=== PATIENT | male | born 1950 | race Caucasian/White ===

== ENCOUNTER → 2017-08-29 08:35 | Outpatient (CLI) | payer MEDICARE, OTHER, SELFPAY ==
[2017-08-29 13:16] LABS: Anion Gap 6 (5-15); BUN 20 mg/dL (7-18); BUN/Creat Ratio 19.6 RATIO (10-20); Calcium,Total 8.7 mg/dL (8.5-10.1); Chloride 103 mmol/L (98-107); Cholesterol 115 mg/dL (200); Creatinine, Serum 1.02 mg/dL (0.70-1.30); EST Glomerular Filtration Rate 77 mL/min (>60); Est Glom Filt Rate - Afr Amer 94 mL/min (>60); Glucose 140 mg/dL (74-106); High Density Lipoprotein 40 mg/dL; Potassium 4.2 mmol/L (3.5-5.1); Sodium Level 139 mmol/L (136-145); Triglycerides 126 mg/dL; Very Low Density Lipoprotein 25 mg/dL (5-40)
== END ==
PROVIDERS: Family Provider Family Medicine; PCP Family Medicine; Visit Provider Family Medicine
DX: E11.65 Type 2 diabetes mellitus with hyperglycemia (principal); E78.00 Pure hypercholesterolemia, unspecified
CPT/HCPCS: 36415; 80048; 80061

== ENCOUNTER → 2018-06-03 09:42 | Outpatient (CLI) | payer MEDICARE, OTHER, SELFPAY ==
[2018-06-03 12:12] LABS: Absolute Lymphocyte Count 2.24 X10^3/ul (0.83-4.51); Absolute Neutrophil Count 4.4 X10^3/uL (2.0-7.7); Basophil# 0.04 X10^3/uL; Basophil% 0.5 % (0-1); Eosinophil# 0.13 X10^3/uL; Eosinophils% 1.8 % (0-5); Hematocrit 42.4 % (40-54); Hemoglobin 13.7 g/dl (13.0-16.5); Lymphocyte # 2.24 X10^3/ul (4.0); Lymphocyte % 30.5 % (19-41); Mean Corp Hgb Conc 32.3 g/gl (32-36); Mean Corpuscular Hgb 29.3 pg (27.0-32.0); Mean Corpuscular Volume 90.8 fL (80-94); Mean Platelet Vol. 12.1 fl (6.2-12.0); Monocyte# 0.58 X10^3/uL; Monocyte% 7.9 % (0-10); Neutrophil # 4.35 X10^3/uL (2.7-7.7); Neutrophil % 59.2 % (47-70); Platelet Count 231 K/mm3 (150-450); RBC Distribution Width CV 13.1 % (11.6-14.6); Red Blood Count 4.67 M/mm3 (4.6-6.2); White Blood Count 7.4 K/mm3 (4.4-11.0)
[2018-06-03 12:23] LABS: POSITIVE COUNT NO; POSITIVE DIFFERENTIAL NO; POSITIVE MORPHOLOGY NO
[2018-06-03 12:50] LABS: Anion Gap 10 (5-15); BUN 25 mg/dL (7-18); BUN/Creat Ratio 19.4 RATIO (10-20); Calcium,Total 8.6 mg/dL (8.5-10.1); Chloride 102 mmol/L (98-107); Creatinine, Serum 1.29 mg/dL (0.70-1.30); EST Glomerular Filtration Rate 59 mL/min (>60); Est Glom Filt Rate - Afr Amer 71 mL/min (>60); Glucose 303 mg/dL (74-106); Potassium 5.1 mmol/L (3.5-5.1); Sodium Level 136 mmol/L (136-145); Thyroid Stim Hormone (TSH) 3.61 uIU/mL (0.358-3.74)
== END ==
PROVIDERS: Family Provider Family Medicine; PCP Family Medicine; Visit Provider Family Medicine
DX: I10 Essential (primary) hypertension (principal); E78.00 Pure hypercholesterolemia, unspecified; R80.9 Proteinuria, unspecified
CPT/HCPCS: 36415; 80048; 84443; 85025

== ENCOUNTER → 2019-03-15 09:14 | Outpatient (CLI) | payer MEDICARE, OTHER, SELFPAY ==
[2019-03-15 12:47] LABS: Absolute Lymphocyte Count 1.87 X10^3/uL (0.83-4.51); Absolute Neutrophil Count 4.3 X10^3/uL (2.0-7.7); Basophil# 0.04 X10^3/uL; Basophil% 0.6 % (0-1); Eosinophil# 0.06 X10^3/uL; Eosinophils% 0.9 % (0-5); Hematocrit 42.4 % (40-54); Hemoglobin 13.7 g/dL (13.0-16.5); Lymphocyte # 1.87 X10^3/ul (4.0); Lymphocyte % 27.7 % (19-41); Mean Corp Hgb Conc 32.3 g/dL (32-36); Mean Corpuscular Hgb 29.4 pg (27.0-32.0); Mean Platelet Vol. 11.7 fl (6.2-12.0); Monocyte# 0.48 X10^3/uL; Monocyte% 7.1 % (0-10); NRBC Flagged by Analyzer 0 % (0-5); Neutrophil # 4.29 X10^3/uL (2.7-7.7); Neutrophil % 63.4 % (47-70); Platelet Count 230 K/mm3 (150-450); RBC Distribution Width CV 13.2 % (11.6-14.6); RBC Distribution Width SD 43.6 fl (35.1-43.9); Red Blood Count 4.66 M/mm3 (4.6-6.2); White Blood Count 6.8 K/mm3 (4.4-11.0)
[2019-03-15 13:06] LABS: ALB/GLOB Ratio 1.1 RATIO (0.9-2.4); AST(SGOT) 15 U/L (15-37); Alanine Aminotransfer ALT/SGPT 24 U/L (16-61); Alkaline Phosphatase 74 U/L (45-117); Anion Gap 7 (5-15); BUN 25 mg/dL (7-18); BUN/Creat Ratio 22.3 RATIO (10-20); Calcium,Total 9.3 mg/dL (8.5-10.1); Chloride 108 mmol/L (98-107); Creatinine, Serum 1.12 mg/dL (0.70-1.30); EST Glomerular Filtration Rate 69 mL/min (>60); Est Glom Filt Rate - Afr Amer 84 mL/min (>60); Globulin 3.6 g/dL (2.2-4.2); Glucose 126 mg/dL (74-106); Potassium 4.3 mmol/L (3.5-5.1); Protein, Total 7.6 g/dL (6.4-8.2); Sodium Level 141 mmol/L (136-145); Thyroid Stim Hormone (TSH) 2.12 uIU/mL (0.358-3.74)
== END ==
PROVIDERS: Family Provider Family Medicine; PCP Family Medicine; Visit Provider Family Medicine
DX: E11.65 Type 2 diabetes mellitus with hyperglycemia (principal); I10 Essential (primary) hypertension; E78.00 Pure hypercholesterolemia, unspecified
CPT/HCPCS: 36415; 80053; 84443; 85025

== ENCOUNTER → 2019-10-01 07:33 | Outpatient (CLI) | payer MEDICARE, OTHER, SELFPAY ==
--- NOTE | 2019-10-01 07:37 | US_ITS ---
PROCEDURES: ULTRASOUND AORTA REASON FOR EXAM: Male, 69 years old. AAA SCREEN -H/O SMOKING TECHNIQUE: Ultrasound evaluation of the aorta was performed with real-time and static abreu-scale imaging. COMPARISON: None. FINDINGS: There is no elongation or tortuosity of the abdominal aorta. Aorta measures: Proximal 1.7 cm. Middle 1.5 cm. Distal 1.3 cm. Aorta measure transversely: Proximal 1.8 cm. Middle 1.8 cm. Distal 1.6 cm. Right iliac artery measures: 0.9 cm. Right iliac artery measure transversely: 0.9 cm. Left iliac artery measures: 1.1 cm. Left iliac artery measure transversely: 0.9 cm. There is no demonstrated aneurysm.. US/Aorta IMPRESSION: Normal abdominal aorta. Electronically Signed: Gabriel Chaney DO at 23:20 EDT Tel [phone], Service support ,
== END ==
PROVIDERS: PCP Family Medicine; Referring Provider Family Medicine; Visit Provider Family Medicine
DX: I10 Essential (primary) hypertension (principal); Z87.891 Personal history of nicotine dependence
CPT/HCPCS: 76775

== ENCOUNTER → 2020-04-26 | Outpatient (CLI) | payer MEDICARE, OTHER, SELFPAY ==
[2020-04-26 15:14] LABS: Absolute Lymphocyte Count 2.01 X10^3/uL (0.83-4.51); Absolute Neutrophil Count 4.4 X10^3/uL (2.0-7.7); Basophil# 0.05 X10^3/uL; Basophil% 0.7 % (0-1); Eosinophil# 0.12 X10^3/uL; Eosinophils% 1.7 % (0-5); Hematocrit 42.6 % (40-54); Hemoglobin 13.7 g/dL (13.0-16.5); Lymphocyte # 2.01 X10^3/ul (4.0); Mean Corp Hgb Conc 32.2 g/dL (32-36); Mean Corpuscular Volume 90.3 fL (80-94); Mean Platelet Vol. 11.8 fl (6.2-12.0); Monocyte# 0.57 X10^3/uL; Monocyte% 7.9 % (0-10); NRBC Flagged by Analyzer 0 % (0-5); Neutrophil # 4.41 X10^3/uL (2.7-7.7); Neutrophil % 61.6 % (47-70); Platelet Count 252 K/mm3 (150-450); RBC Distribution Width CV 12.7 % (11.6-14.6); RBC Distribution Width SD 41.7 fl (35.1-43.9); Red Blood Count 4.72 M/mm3 (4.6-6.2); White Blood Count 7.2 K/mm3 (4.4-11.0)
[2020-04-26 15:37] LABS: ALB/GLOB Ratio 1.2 RATIO (0.9-2.4); AST(SGOT) 23 U/L (15-37); Alanine Aminotransfer ALT/SGPT 23 U/L (16-61); Alkaline Phosphatase 72 U/L (45-117); Anion Gap 7 (5-15); BUN 28 mg/dL (7-18); BUN/Creat Ratio 28.1 RATIO (10-20); Calcium,Total 8.6 mg/dL (8.5-10.1); Chloride 106 mmol/L (98-107); EST Glomerular Filtration Rate 79 mL/min (>60); Est Glom Filt Rate - Afr Amer 96 mL/min (>60); Globulin 3.2 g/dL (2.2-4.2); Glucose 128 mg/dL (74-106); Potassium 4.6 mmol/L (3.5-5.1); Protein, Total 7.2 g/dL (6.4-8.2); Sodium Level 138 mmol/L (136-145); Thyroid Stim Hormone (TSH) 2.47 uIU/mL (0.358-3.74)
== END | disposition home or self-care (01) ==
LOC: BFHLAB 11:10
PROVIDERS: PCP Family Medicine; Visit Provider Family Medicine
DX: E11.65 Type 2 diabetes mellitus with hyperglycemia (principal); I10 Essential (primary) hypertension; E78.00 Pure hypercholesterolemia, unspecified
CPT/HCPCS: 36415; 80053; 84443; 85025

== ENCOUNTER 2020-09-13 14:55 | Outpatient (RCR) | payer MEDICARE, OTHER, SELFPAY | END 2020-09-13 23:59 | LOC: IMMUN 14:55 | PROVIDERS: PCP Family Medicine; Visit Provider Family Medicine | DX: Z23 Encounter for immunization (principal) | CPT/HCPCS: 0011A; 0012A; 91301 ==

== ENCOUNTER → 2020-10-25 10:35 | Outpatient (CLI) | payer MEDICARE, OTHER, SELFPAY ==
[2020-10-25 12:58] LABS: Anion Gap 5 (5-15); BUN 28 mg/dL (7-18); BUN/Creat Ratio 28.2 RATIO (10-20); Calcium,Total 8.9 mg/dL (8.5-10.1); Chloride 105 mmol/L (98-107); Creatinine, Serum 0.99 mg/dL (0.70-1.30); EST Glomerular Filtration Rate 79 mL/min (>60); Est Glom Filt Rate - Afr Amer 96 mL/min (>60); Glucose 128 mg/dL (74-106); Potassium 4.7 mmol/L (3.5-5.1); Sodium Level 135 mmol/L (136-145)
== END ==
PROVIDERS: PCP Family Medicine; Referring Provider Family Medicine; Visit Provider Family Medicine
DX: I10 Essential (primary) hypertension (principal)
CPT/HCPCS: 36415; 80048

== ENCOUNTER 2021-08-08 09:35 | Emergency (ER) | payer MEDICARE, OTHER, SELFPAY ==
[2021-08-08 09:35] VITALS: BP 154/66; PULSE 79; RESP 15; TEMP 35.8; O2SAT 98; BMI 26.2
--- NOTE | 2021-08-08 10:08 | EKG12_ITS ---
Test Reason : CP Blood Pressure : / mmHG Vent. Rate : 076 BPM Atrial Rate : 076 BPM P-R Int : 152 ms QRS Dur : 080 ms QT Int : 386 ms P-R-T Axes : 035 043 032 degrees QTc Int : 434 ms Normal sinus rhythm Normal ECG Confirmed by PORSCHE MATA, JOHN ([id number]), web editor JENIFER TATUM ([id number]) on 08/09/2021 9:00:38 AM Referred By: SUSIE/JOSEFINA Confirmed By:JOHN MORRELL MD
--- NOTE | 2021-08-08 10:08 | RAD_ITS ---
STUDY: X-RAY CHEST REASON FOR EXAM: Male, 70 years old. Chest pain TECHNIQUE: Single AP portable view of the chest. COMPARISON: Comparison is made with prior study dated 10/25/2012. FINDINGS: EKG electrodes are seen. The lungs are clear and expanded. There is no demonstrated pleural abnormality. Normal size heart. Normal mediastinum and sid. Normal visualized pulmonary arteries. Normal visualized aortic arch and descending thoracic aorta. Normal visualized thoracic spine. There is degenerative osteoarthritis of the bilateral shoulders. Hiatal hernia. RAD/Chest 1 View (Portable) IMPRESSION: Normal x-ray examination of the chest. Hiatal hernia. Electronically Signed: Mario Marion MD at 10:39 EST , Service support ,
[2021-08-08 10:28] LABS: Absolute Lymphocyte Count 2.41 X10^3/uL (0.83-4.51); Absolute Neutrophil Count 4.6 X10^3/uL (2.0-7.7); Basophil# 0.09 X10^3/uL; Basophil% 1.1 % (0-1); Eosinophil# 0.27 X10^3/uL; Eosinophils% 3.4 % (0-5); Hematocrit 45.1 % (40-54); Hemoglobin 14.8 g/dL (13.0-16.5); Lymphocyte # 2.41 X10^3/ul (0.83-4.51); Lymphocyte % 30.2 % (19-41); Mean Corp Hgb Conc 32.8 g/dL (32-36); Mean Corpuscular Volume 88.3 fL (80-94); Mean Platelet Vol. 11.5 fl (6.2-12.0); Monocyte# 0.58 X10^3/uL; Monocyte% 7.3 % (0-10); NRBC Flagged by Analyzer 0 % (0-5); Neutrophil # 4.62 X10^3/uL (2.7-7.7); Neutrophil % 57.7 % (47-70); Platelet Count 256 K/mm3 (150-450); RBC Distribution Width SD 42.3 fl (35.1-43.9); Red Blood Count 5.11 M/mm3 (4.6-6.2)
--- NOTE | 2021-08-08 10:30 | EDS_ITS ---
HPI History of Present Illness Chief Complaint: Chest Pain Narrative Narrative: And off 7-year-old male presenting with chest pain which she describes as retrosternal. He states it was very sharp and lasted about 3 minutes. He states he was very sweaty and nauseous. The pain is resolved and has not returned. This happened while he was doing the dishes this morning. Patient states that he had already been to his doctor's office and had a good checkup and told he was in good health. He denies history of DVT/PE and has no risk factors. He has past medical history of hypertension, hyperlipidemia, GERD, diabetes. Patient denies cardiac history. PFSH PFS Medical History Chest pain Diabetes Former smoker Home Medications atorvastatin 5 mg PO QODAY 12/14/15 [History Last Taken Unknown] esomeprazole magnesium [Nexium] 40 mg PO DAILY 12/14/15 [History Last Taken 12/19/15 06:00 40] glimepiride 4 mg PO BID 12/14/15 [History Last Taken Unknown] lisinopril 10 mg PO QHS 12/14/15 [History Last Taken Unknown] metformin 1,000 mg PO BIDCM 12/14/15 [History Last Taken Unknown] naproxen sodium [Aleve] 220 mg PO BID 12/14/15 [History Last Taken Unknown] empagliflozin [Jardiance] 10 mg PO DAILY 08/08/21 [History Last Taken Unknown] Allergy/AdvReac Type Severity Reaction Status Date / Time amoxicillin Allergy Hives Verified 08/08/21 09:38 Surgical History History of arthroplasty of left shoulder Social History Smoking Status: Former smoker ROS ROS ED Constitutional Constitutional ED: Reports sweats; Denies chills or fever(s) Eyes Eyes: Denies blurry vision or change in vision ENT ENT ED: Denies rhinorrhea or sore throat Cardiovascular Cardiovascular: Reports as per HPI Respiratory/Chest Respiratory/Chest: Denies cough or dyspnea Gastrointestinal Gastrointestinal: Reports nausea; Denies abdominal pain or vomiting Genitourinary Genitourinary ED: Denies dysuria or hematuria Musculoskeletal Musculoskeletal: Denies myalgias Integumentary Denies Abrasions or rash Neurologic Neurologic: Denies headache(s) or weakness EXAM Physical Exam Const Vital Signs: 08/08/21 09:35 08/08/21 09:44 08/08/21 10:10 Temperature 96.5 F L Temperature Source Temporal Pulse Rate 79 Respiratory Rate 15 Respiratory Effort Normal Non-Labored Blood Pressure 154/66 H Blood Pressure Mean 95 Pulse Ox 98 Oxygen Delivery Method Room Air Room Air 08/08/21 12:06 Temperature Temperature Source Pulse Rate 72 Respiratory Rate Respiratory Effort Blood Pressure 99/61 Blood Pressure Mean 73 Pulse Ox 95 Oxygen Delivery Method Room Air Positive well developed General Appearance ED: well developed and NAD; Negative for pallor HEENT Reports moist mucous membranes normocephalic and atraumatic Eyes PERRL and EOMs intact bilaterally Neck no lymphadenopathy and supple Chest Wall inspection of chest normal and palpation of chest normal Resp normal respiratory effort Effort and Inspection: respiratory distress Cardio regular rate and regular rhythm Neuro oriented x3 Sensorium / Orientation: awake Psych mental status grossly normal Skin General Skin Exam: Negative for jaundice or pallor Heart Score History: Moderately Suspicious ECG: Normal Age: >/= 65 years Risk Factors: >/= 3 Risk Factors or History of CAD Score: 5 MDM MDM MDM Narrative Medical decision making narrative: 70-year-old male presenting with chest pain which she describes retrosternal. He does describe it as sharp. It lasted about 3 minutes any sweaty and nauseous. This is resolved and not returned. EKG on my interpretation shows a sinus rhythm with a ventricular rate of 76 bpm without sign of ischemic change. Chest x-ray on my interpretation shows no a cute cardiopulmonary process, however the radiologist documents that there is a hiatal hernia. CBC and BMP are unremarkable. High-sensitivity troponin is 7 and delta troponin is 7. This rules out ACS. D-dimer is low at 0.36. Patient's likely source of pain is hiatal hernia. He was offered referral to GI but declines. He will follow-up with his PCP. Patient to return precautions. Impression: 1. Chest pain noncardiac 2. Hiatal hernia Lab Data Attestation: I reviewed the patient's lab results. Labs: Laboratory Results - last 24 hr 08/08/21 08/08/21 08/08/21 09:40 09:40 09:40 WBC 8.0 RBC 5.11 Hgb 14.8 Hct 45.1 MCV 88.3 MCH 29.0 MCHC 32.8 RDW Std Deviation 42.3 RDW Coeff of Rogelio 13.0 Plt Count 256 MPV 11.5 Immature Gran % (Auto) 0.300 Neut % (Auto) 57.7 Lymph % (Auto) 30.2 [place] % (Auto) 7.3 Eos % (Auto) 3.4 Baso % (Auto) 1.1 H Absolute Neuts (auto) 4.6 Absolute Lymphs (auto) 2.41 Nucleated RBC % 0 D-Dimer Quant (PE/DVT) 0.36 Sodium 138 Potassium 4.3 Chloride 103 Carbon Dioxide 29.0 Anion Gap 6 BUN 23 H Creatinine 1.12 Estim Creat Clear Calc 57.38 Est GFR (MDRD) Af Amer 83 Est GFR (MDRD) Non-Af 69 BUN/Creatinine Ratio 20.5 H Glucose 172 H Calcium 9.4 Troponin I High Sens 7 08/08/21 12:03 WBC RBC Hgb Hct MCV MCH MCHC RDW Std Deviation RDW Coeff of Rogelio Plt Count MPV Immature Gran % (Auto) Neut % (Auto) Lymph % (Auto) [place] % (Auto) Eos % (Auto) Baso % (Auto) Absolute Neuts (auto) Absolute Lymphs (auto) Nucleated RBC % D-Dimer Quant (PE/DVT) Sodium Potassium Chloride Carbon Dioxide Anion Gap BUN Creatinine Estim Creat Clear Calc Est GFR (MDRD) Af Amer Est GFR (MDRD) Non-Af BUN/Creatinine Ratio Glucose Calcium Troponin I High Sens 7 Radiography Diagnostic Testing: Clinical Impression(s) from Imaging Studies Chest X-Ray 08/08/21 10:08 IMPRESSION: Normal x-ray examination of the chest. Hiatal hernia. Electronically Signed: Mario Marion MD at 10:39 EST , Service support , Discharge Plan Triage Chief Complaint: Chest Pain ED Provider: Nikolai Post Dx/Rx/DC Orders Instructions: ED Chest Pain, Noncardiac, ED Hiatal Hernia Prescriptions: No Action atorvastatin 10 MG tablet 5 mg PO QODAY RF: 0 glimepiride 1 MG tablet 4 mg PO BID RF: 0 metformin 1,000 MG tablet 1,000 mg PO BIDCM RF: 0 esomeprazole magnesium [Nexium] 40 MG capsule 40 mg PO DAILY RF: 0 naproxen sodium [Aleve] 220 MG tablet 220 mg PO BID RF: 0 lisinopril 5 MG tablet 10 mg PO QHS RF: 0 Jardiance 10 mg tablet 10 mg PO DAILY RF: 0 Primary Care Provider: Carmine Jimenez Referrals: Carmine Jimenez MD [Primary Care Provider] - Disposition Disposition: Home, Self Care
[2021-08-08 10:46] LABS: D-Dimer Quantitative (DVT/PE) 0.36 FEU/ug/m (0.27-0.49)
[2021-08-08 10:49] LABS: Anion Gap 6 (5-15); BUN 23 mg/dL (7-18); BUN/Creat Ratio 20.5 RATIO (10-20); Calcium,Total 9.4 mg/dL (8.5-10.1); Chloride 103 mmol/L (98-107); Creatinine, Serum 1.12 mg/dL (0.70-1.30); EST Glomerular Filtration Rate 69 mL/min (>60); Est Glom Filt Rate - Afr Amer 83 mL/min (>60); Estimated Creatinine Clearance 57.38 ml/min; Glucose 172 mg/dL (74-106); Potassium 4.3 mmol/L (3.5-5.1); Sodium Level 138 mmol/L (136-145); Troponin-I HS 7 pg/mL (3.0-78.0)
[2021-08-08 12:06] VITALS: BP 99/61; PULSE 72; O2SAT 95
[2021-08-08 12:30] LABS: Troponin-I HS 7 pg/mL (3.0-78.0)
[2021-08-08 13:19] VITALS: BP 94/75; O2SAT 98
== END 2021-08-08 13:20 | disposition home or self-care (01) ==
PROVIDERS: Emergency Provider Student in an Organized Health Care Education/Training Program; PCP Family Medicine; Visit Provider Student in an Organized Health Care Education/Training Program
DX: K44.9 Diaphragmatic hernia without obstruction or gangrene (principal); E11.9 Type 2 diabetes mellitus without complications; R07.89 Other chest pain; E78.5 Hyperlipidemia, unspecified; I10 Essential (primary) hypertension; K21.9 Gastro-esophageal reflux disease without esophagitis; Z79.84 Long term (current) use of oral hypoglycemic drugs; Z87.891 Personal history of nicotine dependence; Z79.899 Other long term (current) drug therapy
CPT/HCPCS: 71045; 80048; 84484; 85025; 85379; 93005; 99284; A4216

== ENCOUNTER 2022-05-28 09:54 | Emergency (ER) | payer MEDICARE, OTHER, SELFPAY ==
[2022-05-28 09:55] VITALS: BP 99/62; PULSE 104; RESP 14; TEMP 37.2; O2SAT 94; BMI 25.5
[2022-05-28 09:57] VITALS: BP 99/62; PULSE 104; RESP 14; TEMP 37.2; O2SAT 94
[2022-05-28 09:59] VITALS: O2SAT 94
--- NOTE | 2022-05-28 10:29 | RAD_ITS ---
STUDY: X-RAY CHEST REASON FOR EXAM: Male, 71 years old. Cough and shortness of breath. TECHNIQUE: PA and lateral views of the chest. COMPARISON: Comparison is made with prior study dated 08/08/2021. FINDINGS: Hyperinflation. There now is evidence of infiltrate in the posterior medial segment of the left lower lobe. I also suspect a lingular infiltrate. Radiographic follow-up is recommended. There is no demonstrated pleural abnormality. Normal size heart. Normal mediastinum and sid. Normal visualized pulmonary arteries. There is atherosclerotic calcification of the aortic arch with tortuosity. There is demineralization of the osseous structures. Normal visualized ribs, clavicles, and shoulders. Hiatal hernia. RAD/Chest PA and Lateral IMPRESSION: Left lower lobe infiltrate. Possible lingular infiltrate. Hiatal hernia. Electronically Signed: Mario Marion MD at 11:32 EST ,
--- NOTE | 2022-05-28 10:29 | ED.VIS.DYS ---
HPI History of Present Illness Chief Complaint: Shortness of Breath Narrative Narrative: Chief complaint says dyspnea. Patient tells me he some dyspnea. He feels very weak. He has had upper respiratory symptoms for the past week which is improving. He had myalgias he had cough congestion and rhinorrhea all of which are improving. He felt somewhat lightheaded today, he took his blood pressure at home and he said he was a little low 90s over 60s, his blood sugars have also been high, apparently the oxygen saturation read 91% on his home oxygen. No current fevers. No chest pain or pleuritic component. No back pain or tearing sensation. No lower extremity edema or calf pain. PFSH PFSH Medical History Chest pain Diabetes Former smoker Home Medications atorvastatin 10 mg tablet 5 mg PO QODAY 12/14/15 [History Last Taken Unknown] esomeprazole magnesium 40 mg capsule,delayed release (Nexium) 40 mg PO DAILY 12/14/15 [History Last Taken 12/19/15 06:00 40] glimepiride 1 mg tablet 4 mg PO BID 12/14/15 [History Last Taken Unknown] lisinopril 5 mg tablet 10 mg PO QHS 12/14/15 [History Last Taken Unknown] metformin 1,000 mg tablet 1,000 mg PO BIDCM 12/14/15 [History Last Taken Unknown] naproxen sodium 220 mg tablet (Aleve) 220 mg PO BID 12/14/15 [History Last Taken Unknown] empagliflozin 10 mg tablet (Jardiance) 10 mg PO DAILY 08/08/21 [History Last Taken Unknown] Allergy/AdvReac Type Severity Reaction Status Date / Time amoxicillin Allergy Hives Verified 08/08/21 09:38 Surgical History History of arthroplasty of left shoulder Social History Smoking Status: Former smoker ROS ROS ED ROS Narrative Past medical history: Reviewed, diabetes, hypertension, history of smoking. Medications: Reviewed Social history: Noncontributory He had recent COVID testing which was negative Review of systems: All systems negative except as indicated General: No fever Eyes: No visual changes ENT: Upper respiratory symptoms which are resolving Neck: No neck pain Cardiovascular: No chest pain Respiratory: No shortness of breath. He has a nonproductive cough. Gastrointestinal: No abdominal pain, nausea vomiting or diarrhea Genitourinary: No dysuria Musculoskeletal: Myalgias which are improving Skin: No rash Neurological: No memory loss, confusion or any focal weakness Psych: No recent behavioral changes Hematologic: No easy bleeding or easy bruising EXAM Physical Exam Narrative Exam Narrative: Physical exam General: Patient appears relatively comfortable in the bed he does not appear ill. Head: Normocephalic, Atraumatic Eyes: Conjunctiva not pale ENT: Somewhat dry mucous membranes. There is some rhinorrhea and upper airway congestion. Normal soft palate and normal voice. Neck: Supple, Nontender, No lymphadenopathy Cardiovascular: Regular rate, Regular rhythm Respiratory: No distress, CTA bilaterally Abdomen: Soft, Nontender, Nondistended. Umbilical hernia which is reproducible and nontender. Back: Nontender, Normal Inspection. Negative for: CVA tenderness Extremities: Nontender, No edema Skin: Normal color, No rash Neurological: Alert, Normal Strength, Normal Sensation Psychological: Normal affect Const Vital Signs: 05/28/22 09:55 05/28/22 09:57 05/28/22 09:59 Temperature 99 F 99 F Temperature Source Temporal Temporal Pulse Rate 104 H 104 H Respiratory Rate 14 14 Respiratory Effort Short of Breath Respiratory Depth Normal Blood Pressure 99/62 99/62 Blood Pressure Mean 74 74 Pulse Ox 94 94 Oxygen Delivery Method Room Air Room Air Room Air 05/28/22 12:48 Temperature 98.2 F Temperature Source Temporal Pulse Rate 90 Respiratory Rate 16 Respiratory Effort Respiratory Depth Blood Pressure 95/63 Blood Pressure Mean 73 Pulse Ox 97 Oxygen Delivery Method Room Air [facility] Lab Data Labs: Laboratory Results - last 24 hr 05/28/22 05/28/22 05/28/22 10:43 10:43 11:25 WBC 20.4 H RBC 4.12 L Hgb 12.0 L Hct 36.2 L MCV 87.9 MCH 29.1 MCHC 33.1 RDW Std Deviation 41.0 RDW Coeff of Rogelio 12.8 Plt Count 181 MPV 10.7 Neut % (Auto) Not Reportable Absolute Neuts (auto) 18.0 H Absolute Lymphs (auto) 1.63 Total Counted 100 Neutrophils % (Manual) 60 Band Neutrophils % 28 H Lymphocytes % (Manual) 8 L Monocytes % (Manual) 3 Metamyelocytes % 1 Diff Path Review May foll Dohle Bodies 1+ Platelet Estimate ADEQUATE RBC Morphology NORM C+C Sodium 131 L Potassium 4.1 Chloride 100 Carbon Dioxide 23.0 Anion Gap 8 BUN 41 H Creatinine 1.62 H Estim Creat Clear Calc 39.10 Est GFR (MDRD) Af Amer 54 L Est GFR (MDRD) Non-Af 45 L BUN/Creatinine Ratio 25.3 H Glucose 282 H Lactic Acid 1.7 Calcium 8.5 Total Bilirubin 0.70 AST 19 ALT 21 Alkaline Phosphatase 70 Total Protein 6.5 Albumin 2.7 L Globulin 3.8 Albumin/Globulin Ratio 0.7 L Procalcitonin 05/28/22 11:25 WBC RBC Hgb Hct MCV MCH MCHC RDW Std Deviation RDW Coeff of Rogelio Plt Count MPV Neut % (Auto) Absolute Neuts (auto) Absolute Lymphs (auto) Total Counted Neutrophils % (Manual) Band Neutrophils % Lymphocytes % (Manual) Monocytes % (Manual) Metamyelocytes % Diff Path Review Dohle Bodies Platelet Estimate RBC Morphology Sodium Potassium Chloride Carbon Dioxide Anion Gap BUN Creatinine Estim Creat Clear Calc Est GFR (MDRD) Af Amer Est GFR (MDRD) Non-Af BUN/Creatinine Ratio Glucose Lactic Acid Calcium Total Bilirubin AST ALT Alkaline Phosphatase Total Protein Albumin Globulin Albumin/Globulin Ratio Procalcitonin 19.55 H Radiography Diagnostic Testing: Clinical Impression(s) from Imaging Studies Chest X-Ray 05/28/22 10:29 IMPRESSION: Left lower lobe infiltrate. Possible lingular infiltrate. Hiatal hernia. Electronically Signed: Mario Marion MD at 11:32 EST , Chest x-ray read by me shows a left side pneumonia. Treatment and Re-Evaluation Narrative: Patient is found to have multilobar pneumonia white count of 20,000 and quite elevated procalcitonin, this is likely bacterial infection, I will treat with antibiotics, Levaquin since the patient is allergic to penicillins. He otherwise appears relatively well and I will admit him. Discharge Plan Triage Chief Complaint: Shortness of Breath ED Provider: Jono Fitzgerald Dx/Rx/DC Orders Clinical Impression: Pneumonia, Acute upper respiratory infection, Weakness Prescriptions: No Action atorvastatin 10 MG tablet 5 mg PO QODAY glimepiride 1 MG tablet 4 mg PO BID metformin 1,000 MG tablet 1,000 mg PO BIDCM esomeprazole magnesium [Nexium] 40 MG capsule 40 mg PO DAILY naproxen sodium [Aleve] 220 MG tablet 220 mg PO BID lisinopril 5 MG tablet 10 mg PO QHS Jardiance 10 mg tablet 10 mg PO DAILY Primary Care Provider: Carmine Jimenez Referrals: Carmine Jimenez MD [Primary Care Provider] -
[2022-05-28] MEDS: 0.9% Normal Saline 1,000 ML 1000 ML IV (10:48)
[2022-05-28 10:51] LABS: Hematocrit 36.2 % (40-54); Mean Corp Hgb Conc 33.1 g/dL (32-36); Mean Corpuscular Hgb 29.1 pg (27.0-32.0); Mean Corpuscular Volume 87.9 fL (80-94); Mean Platelet Vol. 10.7 fl (6.2-12.0); POSITIVE COUNT YES; POSITIVE MORPHOLOGY YES; Platelet Count 181 K/mm3 (150-450); RBC Distribution Width CV 12.8 % (11.6-14.6); Red Blood Count 4.12 M/mm3 (4.6-6.2); White Blood Count 20.4 K/mm3 (4.4-11.0)
[2022-05-28 10:52] LABS: Differential Indicated MANUAL DIFF
[2022-05-28 11:06] LABS: ALB/GLOB Ratio 0.7 RATIO (0.9-2.4); AST(SGOT) 19 U/L (15-37); Alanine Aminotransfer ALT/SGPT 21 U/L (16-61); Albumin, Serum 2.7 g/dL (3.2-5.0); Alkaline Phosphatase 70 U/L (45-117); Anion Gap 8 (5-15); BUN 41 mg/dL (7-18); BUN/Creat Ratio 25.3 RATIO (10-20); Calcium,Total 8.5 mg/dL (8.5-10.1); Chloride 100 mmol/L (98-107); Creatinine, Serum 1.62 mg/dL (0.70-1.30); EST Glomerular Filtration Rate 45 mL/min (>60); Est Glom Filt Rate - Afr Amer 54 mL/min (>60); Globulin 3.8 g/dL (2.2-4.2); Glucose 282 mg/dL (74-106); Potassium 4.1 mmol/L (3.5-5.1); Protein, Total 6.5 g/dL (6.4-8.2); Sodium Level 131 mmol/L (136-145)
[2022-05-28 11:15] LABS: Dohle Bodies 1+; Lymphocyte 8 % (19-41); Metamyelocyte 1 % (0-1); Monocyte 3 % (0-10); Neutrophil-Band 28 % (0-5); Neutrophil-Segmented 60 % (47-70); Platelet Estimate ADEQUATE (ADEQ); Red Cell Morphology NORM C+C NORMAL (NORM C&C); Total Cells Counted 100 (MANUAL DIFF)
[2022-05-28 11:17] LABS: Absolute Lymphocyte Count 1.63 X10^3/uL (0.83-4.51)
[2022-05-28 11:58] LABS: Lactic Acid 1.7 mmol/L (0.4-1.9)
[2022-05-28] MEDS: 0.9% Normal Saline 1,000 ML 999 ML IV (12:17)
[2022-05-28 12:34] LABS: Procalcitonin 19.55 ng/mL (0.00-0.09)
[2022-05-28 12:48] VITALS: BP 95/63; PULSE 90; RESP 16; TEMP 36.8; O2SAT 97
[2022-05-28 13:00] VITALS: BP 106/70; PULSE 89; RESP 16; TEMP 36.8; O2SAT 96
[2022-05-28] MEDS: levoFLOXacin IV 750 MG/150 ML BAG 100 MG IV (13:01)
--- NOTE | 2022-05-28 13:19 | DCINST_ITS ---
Discharge Instructions Diet Discharge Diet: 2000 Calorie Control Diet Dressing / Incision Call your doctor if you observe: Shortness of breath and - Follow Up Care Test Results: Test results from this visit will be discussed in further detail at your follow- up appointment, if applicable. Discharge Plan Triage Chief Complaint: Shortness of Breath ED Provider: Jono Fitzgerald Dx/Rx/DC Orders Clinical Impression: Pneumonia, Acute upper respiratory infection, Weakness Instructions: ED Pneumonia (Adult) Prescriptions: New levofloxacin 750 mg tablet 750 mg PO DAILY Qty: 5 0RF guaifenesin [Mucinex] 600 mg tablet extended release 12hr 600 mg PO Q12H Qty: 10 0RF albuterol sulfate 90 mcg/actuation HFA aerosol inhaler 1 inh inhalation Q6H PRN (Reason: shortness of breath or wheezing) Qty: 6.7 0RF Continued atorvastatin 10 MG tablet 5 mg PO QODAY glimepiride 1 MG tablet 4 mg PO BID metformin 1,000 MG tablet 1,000 mg PO BIDCM esomeprazole magnesium [Nexium] 40 MG capsule 40 mg PO DAILY naproxen sodium [Aleve] 220 MG tablet 220 mg PO BID Jardiance 10 mg tablet 10 mg PO DAILY Discontinued lisinopril 5 MG tablet 10 mg PO QHS Primary Care Provider: Carmine Jimenez Referrals: Carmine Jimenez MD [Primary Care Provider] - 1-2 Weeks Activity Restrictions/Additional Instructions: Slowly ease back into your normal routine over the matter of several days. Disposition Disposition: Home, Self Care
--- NOTE | 2022-05-28 13:30 | PCM.CONS.GEN ---
Assessment & Plan Assessment/Plan (1) Pneumonia: PLAN: Met 2 of 4 SIRS criteria with leukocytosis and tachycardia. Overall, patient appears good. I did have him March at bedside while wearing his N95 mask and his pulse ox was 98%. He felt well during that time. I offered to bring the patient in under observation status and just observe him but informed him that he would not receive any additional antibiotics until tomorrow afternoon. I told him that he would be also fine to go home but he felt uncomfortable that we could certainly bring him into the hospital and observe him. Being the patient feels better after receiving IV fluids patient seen and examined independently. Data and vitals reviewed. I agree with the above note by the nurse practitioner. Would prefer to go home. I told him I will send him home with levofloxacin, Mucinex and an albuterol. Advised him to follow-up with his primary care doctor next 1 to 2 weeks to make sure he is continue to do better. I advised him to return to the hospital if he is at all feeling worse. PLAN: Plan Hypertension: Patient on lisinopril and his blood pressure here has been in the 90s systolic though it is doing better after the IV fluids with systolic in the 100s. Will discontinue his lisinopril for now. And have him follow-up with his PCP to see if that would need to be resumed. Diabetes mellitus type 2 uncontrolled. Continue with his Jardiance, glimepiride and metformin. Likely due to the infection precipitated in the acute worsening of his diabetes. Anticipate that improving once he is overall feeling better. Will need follow-up his primary care doctor to see if any additional changes would be needed. I am concerned about making any changes at this time as once he starts feeling better it may lead him to have hypoglycemia. Patient will be discharged after he has completed his levofloxacin. Discussed with Dr. Fitzgerald. HPI Consult Data Date of Consult: 05/28/22 HPI Narrative Reason for Consultation: pneumonia HPI Narrative: CAROLINA ARAUJO, is a 71 M who presents with feeling weak for about 1 week. Started off as what felt to be typical cold but progressed to myalgias, fatigue. Went to an urgent care yesterday and was checked for COVID-19 and influenza which were both negative. Continue to feel unwell. Blood pressure was noted to be 90s systolic and his pulse ox was noted to be 91% on room air. With that, he was advised to go to the emergency room. In the emergency room, patient was noted to have a left lower lobe pneumonia. His white count was 20,000. Creatinine was up to 1.6. Patient did receive IV fluids and has been started on levofloxacin. Patient's pulse ox here has remained in the high 90s with him wearing an N95 mask. PFSH Medical History Chest pain Diabetes Former smoker Home Medications atorvastatin 10 mg tablet 5 mg PO QODAY 12/14/15 [History Last Taken Unknown] esomeprazole magnesium 40 mg capsule,delayed release (Nexium) 40 mg PO DAILY 12/14/15 [History Last Taken 12/19/15 06:00 40] glimepiride 1 mg tablet 4 mg PO BID 12/14/15 [History Last Taken Unknown] metformin 1,000 mg tablet 1,000 mg PO BIDCM 12/14/15 [History Last Taken Unknown] naproxen sodium 220 mg tablet (Aleve) 220 mg PO BID 12/14/15 [History Last Taken Unknown] empagliflozin 10 mg tablet (Jardiance) 10 mg PO DAILY 08/08/21 [History Last Taken Unknown] albuterol sulfate 90 mcg/actuation aerosol inhaler 1 inh inhalation Q6H PRN shortness of breath or wheezing #6.7 grams 05/28/22 [Rx Last Taken Unknown] guaifenesin 600 mg tablet, extended release 12 hr (Mucinex) 600 mg PO Q12H #10 tabs 05/28/22 [Rx Last Taken Unknown] levofloxacin 750 mg tablet 750 mg PO DAILY #5 tabs 05/28/22 [Rx Last Taken Unknown] Allergy/AdvReac Type Severity Reaction Status Date / Time amoxicillin Allergy Hives Verified 08/08/21 09:38 Surgical History History of arthroplasty of left shoulder Social History Smoking Status: Former smoker ROS ROS Narrative No fever chills. No sore throat rhinitis. No chest pain. No lower extremity edema. No history of VTE. ROS Physical Exam Const alert and no apparent distress HEENT normocephalic and head/scalp atraumatic Neck no lymphadenopathy Resp Resp Narrative: Bibasilar crackles Cardio Cardio Narrative: Slightly tachycardic but regular GI normal to inspection, nondistended, normoactive bowel sounds, soft to palpation, non-tender and non-distended Extremity normal to inspection and full ROM Neuro oriented x3 Psych affect normal Lab / Micro Data Result Diagrams: 05/28/22 10:43 05/28/22 10:43 Labs: Laboratory Results - last 24 hr 05/28/22 10:43: WBC 20.4 H, RBC 4.12 L, Hgb 12.0 L, Hct 36.2 L, MCV 87.9, MCH 29.1, MCHC 33.1, RDW Std Deviation 41.0, RDW Coeff of Rogelio 12.8, Plt Count 181, MPV 10.7, Neut % (Auto) Not Reportable, Absolute Neuts (auto) 18.0 H, Absolute Lymphs (auto) 1.63, Total Counted 100, Neutrophils % (Manual) 60, Band Neutrophils % 28 H, Lymphocytes % (Manual) 8 L, Monocytes % (Manual) 3, Metamyelocytes % 1, Diff Path Review May foll, Dohle Bodies 1+, Platelet Estimate ADEQUATE, RBC Morphology NORM C+C 05/28/22 10:43: Sodium 131 L, Potassium 4.1, Chloride 100, Carbon Dioxide 23.0, Anion Gap 8, BUN 41 H, Creatinine 1.62 H, Estim Creat Clear Calc 39.10, Est GFR (MDRD) Af Amer 54 L, Est GFR (MDRD) Non-Af 45 L, BUN/Creatinine Ratio 25.3 H, Glucose 282 H, Calcium 8.5, Total Bilirubin 0.70, AST 19, ALT 21, Alkaline Phosphatase 70, Total Protein 6.5, Albumin 2.7 L, Globulin 3.8, Albumin/Globulin Ratio 0.7 L 05/28/22 11:25: Lactic Acid 1.7 05/28/22 11:25: Procalcitonin 19.55 H Radiology Impression Chest X-Ray 05/28/22 10:29 IMPRESSION: Left lower lobe infiltrate. Possible lingular infiltrate. Hiatal hernia. Electronically Signed: Mario Marion MD at 11:32 EST , Charges/Coding Visit Charges Office Visits / Consults: [id number] OP Consult L4
[2022-05-28 13:45] LABS: Pathologist Review Reviewed
[2022-05-28 15:06] LABS: Bedside Glucose 127 mg/dL (74-106)
[2022-05-28 15:21] VITALS: BP 107/76; PULSE 74; RESP 16; O2SAT 98
== END 2022-05-28 15:23 | disposition home or self-care (01) ==
PROVIDERS: Emergency Provider Emergency Medicine; PCP Family Medicine; Visit Provider Emergency Medicine
DX: J18.9 Pneumonia, unspecified organism (principal); E11.9 Type 2 diabetes mellitus without complications; J06.9 Acute upper respiratory infection, unspecified; I10 Essential (primary) hypertension; R53.1 Weakness; Z20.822 Contact with and (suspected) exposure to COVID-19; Z87.891 Personal history of nicotine dependence; R06.02 Shortness of breath; Z79.84 Long term (current) use of oral hypoglycemic drugs
CPT/HCPCS: 71046; 80053; 82962; 83605; 84145; 85025; 87040; 87633; 96361; 96365; 96366; 99283; J7030; J7050; A4216

== ENCOUNTER → 2022-08-20 | Outpatient (CLI) | payer MEDICARE, OTHER, SELFPAY ==
[2022-08-20 12:18] LABS: Absolute Lymphocyte Count 2.43 X10^3/uL (0.83-4.51); Absolute Neutrophil Count 4.7 X10^3/uL (2.0-7.7); Basophil# 0.07 X10^3/uL; Basophil% 0.9 % (0-1); Eosinophil# 0.17 X10^3/uL; Eosinophils% 2.1 % (0-5); Hematocrit 47.3 % (40-54); Hemoglobin 14.9 g/dL (13.0-16.5); Lymphocyte # 2.43 X10^3/ul (0.83-4.51); Lymphocyte % 30.3 % (19-41); Mean Corp Hgb Conc 31.5 g/dL (32-36); Mean Corpuscular Hgb 28.6 pg (27.0-32.0); Mean Corpuscular Volume 90.8 fL (80-94); Mean Platelet Vol. 11.5 fl (6.2-12.0); Monocyte# 0.63 X10^3/uL; Monocyte% 7.9 % (0-10); NRBC Flagged by Analyzer 0 % (0-5); Neutrophil # 4.71 X10^3/uL (2.7-7.7); Neutrophil % 58.7 % (47-70); Platelet Count 248 K/mm3 (150-450); RBC Distribution Width SD 46.5 fl (35.1-43.9); Red Blood Count 5.21 M/mm3 (4.6-6.2)
[2022-08-20 12:47] LABS: Hemoglobin A1c 6.6 % (3.8-5.6)
[2022-08-20 12:53] LABS: ALB/GLOB Ratio 1.2 RATIO (0.9-2.4); AST(SGOT) 16 U/L (15-37); Alanine Aminotransfer ALT/SGPT 21 U/L (16-61); Albumin, Serum 4.1 g/dL (3.2-5.0); Alkaline Phosphatase 74 U/L (45-117); Anion Gap 8 (5-15); BUN 25 mg/dL (7-18); BUN/Creat Ratio 25.4 RATIO (10-20); Calcium,Total 9.3 mg/dL (8.5-10.1); Chloride 106 mmol/L (98-107); Cholesterol 126 mg/dL (200); Creatinine, Serum 0.98 mg/dL (0.70-1.30); EST Glomerular Filtration Rate 80 mL/min (>60); Est Glom Filt Rate - Afr Amer 96 mL/min (>60); Globulin 3.3 g/dL (2.2-4.2); Glucose 135 mg/dL (74-106); High Density Lipoprotein 46 mg/dL; PSA,Total - Annual Screen 2.26 ng/mL (0.00-4.00); Potassium 4.4 mmol/L (3.5-5.1); Protein, Total 7.4 g/dL (6.4-8.2); Sodium Level 142 mmol/L (136-145); Triglycerides 107 mg/dL; Very Low Density Lipoprotein 21 mg/dL (5-40)
[2022-08-20 18:09] LABS: Xtra Tube EP Lab EXTRA TUBE
== END | disposition home or self-care (01) ==
LOC: BFHLAB 10:04
PROVIDERS: PCP Family Medicine; Visit Provider Family Medicine
DX: E11.9 Type 2 diabetes mellitus without complications (principal); I10 Essential (primary) hypertension; E78.00 Pure hypercholesterolemia, unspecified; Z12.5 Encounter for screening for malignant neoplasm of prostate
CPT/HCPCS: 36415; 80053; 80061; 83036; 84153; 85025; G0103

== ENCOUNTER → 2023-08-21 | Outpatient (CLI) | payer MEDICARE, OTHER, SELFPAY ==
[2023-08-21 12:09] LABS: Absolute Lymphocyte Count 2.07 X10^3/uL (0.83-4.51); Absolute Neutrophil Count 7.3 X10^3/uL (2.0-7.7); Basophil# 0.09 X10^3/uL; Basophil% 0.9 % (0-1); Eosinophil# 0.31 X10^3/uL; Hematocrit 42.2 % (40-54); Hemoglobin 13.2 g/dL (13.0-16.5); Lymphocyte # 2.07 X10^3/ul (0.83-4.51); Lymphocyte % 19.8 % (19-41); Mean Corp Hgb Conc 31.3 g/dL (32-36); Mean Corpuscular Hgb 28.4 pg (27.0-32.0); Mean Corpuscular Volume 90.9 fL (80-94); Mean Platelet Vol. 11.4 fl (6.2-12.0); Monocyte# 0.73 X10^3/uL; NRBC Flagged by Analyzer 0 % (0-5); Neutrophil # 7.25 X10^3/uL (2.7-7.7); Neutrophil % 69.1 % (47-70); Platelet Count 266 K/mm3 (150-450); RBC Distribution Width SD 42.8 fl (35.1-43.9); Red Blood Count 4.64 M/mm3 (4.6-6.2); White Blood Count 10.5 K/mm3 (4.4-11.0)
[2023-08-21 12:36] LABS: Hemoglobin A1c 6.7 % (3.8-5.6)
[2023-08-21 12:44] LABS: ALB/GLOB Ratio 1.2 RATIO (0.9-2.4); AST(SGOT) 17 U/L (15-37); Alanine Aminotransfer ALT/SGPT 30 U/L (16-61); Alkaline Phosphatase 76 U/L (45-117); Anion Gap 4 (5-15); BUN 25 mg/dL (7-18); BUN/Creat Ratio 23.8 RATIO (10-20); Calcium,Total 9.7 mg/dL (8.5-10.1); Chloride 110 mmol/L (98-107); Cholesterol 130 mg/dL (200); Creatinine, Serum 1.05 mg/dL (0.70-1.30); EST Glomerular Filtration Rate 74 mL/min (>60); Est Glom Filt Rate - Afr Amer 89 mL/min (>60); Globulin 3.3 g/dL (2.2-4.2); Glucose 115 mg/dL (74-106); High Density Lipoprotein 36 mg/dL; Potassium 4.4 mmol/L (3.5-5.1); Protein, Total 7.3 g/dL (6.4-8.2); Sodium Level 140 mmol/L (136-145); Triglycerides 141 mg/dL; Uric Acid 4.9 mg/dL (3.5-7.2); Very Low Density Lipoprotein 28 mg/dL (5-40)
[2023-08-21 17:15] LABS: Microalbumin,Random Urine 5.6 mg/L (NO RANGE EST.); Microalbumin:Creatinine Ratio 6.5 mg/g CRE (<30 mg/g CRE)
== END | disposition home or self-care (01) ==
LOC: BFHLAB 08:58
PROVIDERS: PCP Family Medicine; Referring Provider Family Medicine; Visit Provider Family Medicine
DX: I10 Essential (primary) hypertension (principal); E11.65 Type 2 diabetes mellitus with hyperglycemia; E78.00 Pure hypercholesterolemia, unspecified; M79.675 Pain in left toe(s)
CPT/HCPCS: 36415; 80053; 80061; 82043; 82570; 83036; 84550; 85025

== ENCOUNTER → 2024-09-14 | Outpatient (CLI) | payer MEDICARE, OTHER, SELFPAY ==
[2024-09-14 13:04] LABS: Absolute Lymphocyte Count 2.33 X10^3/uL (0.83-4.51); Absolute Neutrophil Count 5.5 X10^3/uL (2.0-7.7); Basophil% 1.1 % (0-1); Eosinophil# 0.15 X10^3/uL; Eosinophils% 1.7 % (0-5); Hematocrit 44.9 % (40-54); Hemoglobin 14.1 g/dL (13.0-16.5); Lymphocyte # 2.33 X10^3/ul (0.83-4.51); Lymphocyte % 26.5 % (19-41); Mean Corp Hgb Conc 31.4 g/dL (32-36); Mean Corpuscular Hgb 28.8 pg (27.0-32.0); Mean Corpuscular Volume 91.6 fL (80-94); Mean Platelet Vol. 11.6 fl (6.2-12.0); NRBC Flagged by Analyzer 0 % (0-5); Neutrophil # 5.49 X10^3/uL (2.7-7.7); Neutrophil % 62.4 % (47-70); Platelet Count 253 K/mm3 (150-450); RBC Distribution Width CV 13.2 % (11.6-14.6); RBC Distribution Width SD 44.8 fl (35.1-43.9); White Blood Count 8.8 K/mm3 (4.4-11.0)
[2024-09-14 19:25] LABS: ALB/GLOB Ratio 1.7 RATIO (0.9-2.4); AST(SGOT) 18 U/L (<=37); Alanine Aminotransfer ALT/SGPT 18 U/L (<=46); Albumin, Serum 4.5 g/dL (3.4-4.8); Alkaline Phosphatase 55 U/L (40-129); Anion Gap 12 (5-15); BUN 27 mg/dL (4-19); BUN/Creat Ratio 29.2 RATIO (10-20); Calcium 10.1 mg/dL (7.6-11.0); Carbon Dioxide 24.6 mmol/L (22.0-29.0); Chloride 105 mmol/L (96-108); Creatinine, Serum 0.9 mg/dL (0.8-1.3); EST Glomerular Filtration Rate 86 (>60); Globulin 2.7 g/dL (2.2-4.2); Glucose 125 mg/dL (70-99); Potassium 4.9 mmol/L (3.3-5.1); Protein, Total 7.3 g/dL (5.9-8.4); Sodium Level 141 mmol/L (133-145); Total Bilirubin 0.36 mg/dL (0.00-1.30)
[2024-09-14 23:58] LABS: Cholesterol 162 mg/dL (<=200); High Density Lipoprotein 42 mg/dL; Triglycerides 146 mg/dL; Very Low Density Lipoprotein 29 mg/dL (5-40)
[2024-09-15 13:12] LABS: Microalbumin,Random Urine < 12.0 mg/L (NO RANGE EST.)
[2024-09-15 16:21] LABS: Hemoglobin A1c 6.6 % (<=5.6)
== END | disposition home or self-care (01) ==
LOC: BFHLAB 09:12
PROVIDERS: PCP Family Medicine; Visit Provider Family Medicine
DX: E11.40 Type 2 diabetes mellitus with diabetic neuropathy, unspecified (principal); E78.00 Pure hypercholesterolemia, unspecified; Z51.81 Encounter for therapeutic drug level monitoring
CPT/HCPCS: 36415; 80053; 80061; 82043; 82570; 83036; 85025

== ENCOUNTER → 2025-06-27 | Outpatient (CLI) | payer MEDICARE, OTHER, SELFPAY ==
--- OUTSIDE RECORDS SUMMARY | 2025-06-27 14:18 | XMS RPT_ITS | CCD ---
Author Organization [facility] Team Providers Care Health Education Teacher Name Role Phone Dr. Carmine Jimenez Primary Care Provider Dr. Carmine Jimenez Referring Provider [phone] BATSHEVA Jamil Attending Provider Dr. Jono Fitzgerald Referring Provider [phone] Jono Fitzgerald Emergency Provider [phone] Kevin Contreras Attending Provider Dr. Jayro Campos DO Primary Care Provider Dr. Jayro Campos DO Attending Provider [phone] Jayro Campos Attending Unavailable Jayro Campos Primary Care Unavailable Jayro Campos Attending Unavailable Jayro Campos Primary Care Unavailable Jayro Campos Primary Care Unavailable Jyaro Campos Attending Unavailable Jayro Campos Referring Unavailable Jayro Campos Attending Unavailable Jayro Campos Primary Care Unavailable Allergies Allergy Classification Reported Allergen(s) Allergy Type Date of Onset Reaction(s) Facility (3 sources) Amoxicillin Drug Allergy 08-08-2021 [facility] (1 source) Amoxicillin Drug Allergy 08-08-2021 [facility] Repository Medications Current Medications Medication Drug Class(es) Dates Sig (Normalized) Sig (Original) [id number] 200 actuat albuterol 0.09 mg/actuat metered dose inhaler (3 sources) beta2-Adrenergic Agonist Start: 05-28-2022 Albuterol Sulfate 90 mcg/actuation HFA aerosol inhaler Active 1 NMA INHALATION EVERY 6 HOURS as needed for shortness of breath or wheezing 6.7 May 28, 2022 1:00am Start: 05-28-2022 Albuterol Sulf ate Active 1 INH INHALATION EVERY 6 HOURS 6.7 May 28, 2022 12:00am atorvastatin 10 mg oral tablet (3 sources) HMG-CoA Reductase Inhibitor Start: 12-14-2015 take 5 mg by mouth every other day Atorvastatin 10 MG tablet Active 5 mg PO EVERY OTHER DAY December 14, 2015 12:00am Start: 12-14-2015 take 5 mg by mouth e very other day Atorvastatin Active 5 MG PO EVERY OTHER DAY December 13, 2015 11:00pm empagliflozin 10 mg oral tablet (3 sources) Sodium-Glucose Cotransporter 2 Inhibitor Start: 08-08-2021 take 1 tablet by mouth once daily Empagliflozin (Jardiance) 10 mg tablet Active 10 mg PO DAILY August 08, 2021 1:00am esomeprazole 40 mg delayed release oral capsule (3 sources) Proton Pump Inhibitor Start: 12-14-2015 take 1 capsule by mouth once daily Esomeprazole Magnesium (Nexium) 40 MG capsule Active 40 mg PO DAILY December 14, 2015 12:00am glimepiride 1 mg oral tablet (3 sources) Sulfonylurea Start: 12-14-2015 take 4 tablets by mouth twice daily Glimepiride 1 MG tablet Active 4 mg PO TWICE A DAY December 14, 2015 12:00am Start: 12-14-2015 take 4 mg by mouth twice daily Glimepiride Active 4 MG PO TWICE A DAY December 13, 2015 11:00pm 12 hr guaiFENesin 600 mg extended release oral tablet (3 sources) Start: 05-28-2022 take 1 tablet by mouth every twelve hours, then take 1 tablet by mouth every twelve hours Guaifenesin (Mucinex) 600 mg tablet extended release 12hr Active 600 mg PO Q12H May 28, 2022 1:00am levoFLOXacin 750 mg oral tablet (3 sources) Quinolone Antimicrobial Start: 05-28-2022 take 1 tablet by mouth once daily Levofloxacin 750 mg tablet Active 750 mg PO DAILY May 28, 2022 1:00am metFORMIN hydrochloride 1000 mg oral tablet (3 sources) Biguanide Start: 12-14-2015 take 1 tablet by mouth twice daily at mealtime Metformin 1,000 MG tablet Active 1000 mg PO TWICE DAILY WITH MEALS December 14, 2015 12:00am naproxen sodium 220 mg oral tablet (3 sources) Nonsteroidal Anti-inflammatory Drug Start: 12-14-2015 take 1 tablet by mouth twice daily Naproxen Sodium (Aleve) 220 MG tablet Active 220 mg PO TWICE A DAY December 14, 2015 12:00am Completed/Discontinued Medications Medication Drug Class(es) Dates Sig (Normalized) Sig (Original) lisinopril 5 mg oral tablet (3 sources) Angiotensin Converting Enzyme Inhibitor Start: 12-14-2015 End: 05-28-2022 take 2 tablets by mouth at bedtime Lisinopril 5 MG tablet Discontinued 10 mg PO AT BEDTIME December 14, 2015 12:00am May 28, 2022 2:20pm Start: 12-14-2015 End: 05-28-2022 take 10 mg by mouth at bedtime Lisinopril Discontinued 10 MG PO AT BEDTIME December 13, 2015 11:00pm May 28, 2022 1:20pm Problems Problem Classification Problem Date Documented Da te Episodic/Chronic Diabetes mellitus with complications (2 sources) Type 2 diabetes mellitus with diabetic neuropathy, unspecified; Translations: [Type 2 diabetes mellitus with diabetic neuropathy, unspecified] Onset: 09-26-2024 Chronic Disorders of lipid metabolism (1 source) Pure hypercholesterolemi a, unspecified; Translations: [Pure hypercholesterolemi a, unspecified] Onset: 03-24-2025 Chronic Essential hypertension (1 source) Essential (primary) hypertension; Translations: [Essential (primary) hypertension] Onset: 03-24-2025 Chronic Malaise and fatigue (3 sources) Asthenia; Translations: [Weakness] 06-05-2022 Episodic Other screening for suspected conditions (not mental disorders or infectious disease) (1 source) Encounter for screening for malignant neoplasm of prostate; Translations: [Encounter for screening for malignant neoplasm of prostate] Onset: 03-24-2025 Episodic Other upper respiratory infections (7 sources) Acute upper respiratory infection; Translations: [Acute upper respiratory infection, unspecified] 05-27-2022 Episodic Pneumonia (except that caused by tuberculosis or sexually transmitted disease) (3 sources) Pneumonia; Translations: [Pneumonia, unspecified organism] 06-05-2022 Episodic Results Test Name Value Interpretation Reference Range Facility Microalb:Creat Ratio,Random URon 02-14-2025 MALB:CREAT TNP Normal <30 mg/g CRE [facility] Comment on above: Result Comment: AMENDED REPORT 02/14/251930 MALB:CREAT previously reported as: 15.0 mg/g CRE Performed By: #### L 502.0250 #### [facility] [address], [address] Hemoglobin A1con 09-15-2024 HbA1c (Bld) [Mass fraction] 6.6 % Normal <=5.6 [facility] Comment on above: Performed By: #### L 501.9985, L500.4100, L500.4050, L100.0100, L502.0250 #### [facility] [address] [place], [address] Microalb:Creat Ratio,Random URon 09-15-2024 Creatinine [Mass/Vol] 79.20 mg/dL Normal NO RANGE EST. [facility] Comment on above: Result Comment: REOR ALEJANDRO Performed By: #### L 501.9985, L500.4100, L500.4050, L100.0100, L502.0250 #### [facility] [address] [place], [address] MICROALBUMIN,UR < 12.0 Normal NO RANGE EST. [facility] Comment on above: Result Comment: REOR ALEJANDRO Performed By: #### L 501.9985, L500.4100, L500.4050, L100.0100, L502.0250 #### [facility] [address] [place], [address] Absolute neutrophil countOrd ered By: Jayro Campos on 09-14-2024 Neutrophils (Bld) [#/Vol] 5.5 10*3/uL 2.0-7.7 [facility] Albumin DL <= 20 mg/L (U) [M ass/Vol]Ordered By: Jayro Campos on 09-14-2024 Urine Random Microalbumin < 12.0 mg/L NO RANGE EST. [facility] BUN/creatinine ratioOrdered By: Jayro Campos on 09-14-2024 Urea nitrogen/Creatinine [Mass ratio] 29.2 mg/mg High 10-20 [facility] Basophil percentageOrdered B y: Jayro Campos on 09-14-2024 Basophils/100 WBC (Bld) 1.1 % High 0-1 [facility] Bilirubin, totalOrdered By: Jayro Campos on 09-14-2024 Bilirubin [Mass/Vol] 0.36 mg/dL 0.00-1.30 [facility] CBC W/Diff, Automatedon 08-22 Absolute Lymph 2.33 X10 3/uL Normal 0.83-4.51 [facility] Comment on above: Performed By: #### L 501.9985, L500.4100, L500.4050, L100.0100, L502.0250 #### [facility] [address] [place], [address] Absolute Neut 5.5 X10 3/uL Normal 2.0-7.7 [facility] Comment on above: Performed By: #### L 501.9985, L500.4100, L500.4050, L100.0100, L502.0250 #### [facility] [address] [place], [address] Basophils/100 WBC (Bld) 1.1 % High 0-1 [facility] Comment on above: Performed By: #### L 501.9985, L500.4100, L500.4050, L100.0100, L502.0250 #### [facility] [address] [place], [address] Eosinophils/100 WBC (Bld) 1.7 % Normal 0-5 [facility] Comment on above: Performed By: #### L 501.9985, L500.4100, L500.4050, L100.0100, L502.0250 #### [facility] [address] [place], [address] Erythrocyte distribution width (RBC) [Ratio] 13.2 % Normal 11.6-14.6 [facility] Comment on above: Performed By: #### L 501.9985, L500.4100, L500.4050, L100.0100, L502.0250 #### [facility] [address] [place], [address] Hematocrit (Bld) [Volume fraction] 44.9 % Normal 40-54 [facility] Comment on above: Performed By: #### L 501.9985, L500.4100, L500.4050, L100.0100, L502.0250 #### [facility] [address] [place], [address] Hemoglobin (Bld) [Mass/Vol] 14.1 g/dL Normal 13.0-16.5 [facility] Comment on above: Performed By: #### L 501.9985, L500.4100, L500.4050, L100.0100, L502.0250 #### [facility] [address] [place], [address] IG% 0.300 Normal 0.0-0.9 [facility] Comment on above: Result Comment: IG% - Immature Granulocytes (promyelocytes, myelocytes and metamyelocytes) > 1% indicates that a LEFT SHIFT is Present. Performed By: #### L 501.9985, L500.4100, L500.4050, L100.0100, L502.0250 #### [facility] [address] [place], [address] Lymphocytes/100 WBC (Bld) 26.5 % Normal 19-41 [facility] Comment on above: Performed By: #### L 501.9985, L500.4100, L500.4050, L100.0100, L502.0250 #### [facility] [address] [place], [address] MCH (RBC) [Entitic mass] 28.8 pg Normal 27.0-32.0 [facility] Comment on above: Performed By: #### L 501.9985, L500.4100, L500.4050, L100.0100, L502.0250 #### [facility] [address] [place], [address] MCHC (RBC) [Mass/Vol] 31.4 g/dL Low 32-36 [facility] Comment on above: Performed By: #### L 501.9985, L500.4100, L500.4050, L100.0100, L502.0250 #### [facility] [address] [place], [address] MCV (RBC) [Entitic vol] 91.6 fL Normal 80-94 [facility] Comment on above: Performed By: #### L 501.9985, L500.4100, L500.4050, L100.0100, L502.0250 #### [facility] [address] [place], [address] Monocytes/100 WBC (Bld) 8.0 % Normal 0-10 [facility] Comment on above: Performed By: #### L 501.9985, L500.4100, L500.4050, L100.0100, L502.0250 #### [facility] [address] [place], [address] Neutrophils/100 WBC (Bld) 62.4 % Normal 47-70 [facility] Comment on above: Performed By: #### L 501.9985, L500.4100, L500.4050, L100.0100, L502.0250 #### [facility] [address] [place], [address] Nucleated RBC (Bld) [#/Vol] 0 10*3/uL Normal 0-5 [facility] Comment on above: Performed By: #### L 501.9985, L500.4100, L500.4050, L100.0100, L502.0250 #### [facility] [address] [place], [address] Platelet mean volume (Bld) [Entitic vol] 11.6 fL Normal 6.2-12.0 [facility] Comment on above: Performed By: #### L 501.9985, L500.4100, L500.4050, L100.0100, L502.0250 #### [facility] [address] [place], [address] Platelets (Bld) [#/Vol] 253 10*3/uL Normal 150-450 [facility] Comment on above: Performed By: #### L 501.9985, L500.4100, L500.4050, L100.0100, L502.0250 #### [facility] [address] [place], [address] RBC (Bld) [#/Vol] 4.90 10*6/uL Normal 4.6-6.2 [facility] Comment on above: Performed By: #### L 501.9985, L500.4100, L500.4050, L100.0100, L502.0250 #### [facility] [address] [place], [address] RDW SD 44.8 fl High 35.1-43.9 [facility] Comment on above: Performed By: #### L 501.9985, L500.4100, L500.4050, L100.0100, L502.0250 #### [facility] [address] [place], [address] WBC (Bld) [#/Vol] 8.8 10*3/uL Normal 4.4-11.0 [facility] Comment on above: Performed By: #### L 501.9985, L500.4100, L500.4050, L100.0100, L502.0250 #### [facility] [address] [place], [address] Cholesterol in VLDL [Mass/Vo l]Ordered By: Jayro Campos on 09-14-2024 VLDL Cholesterol 29 mg/dL 5-40 [facility] Comprehensive Metabolic Prof ilon 09-14-2024 Albumin [Mass/Vol] 4.5 g/dL Normal 3.4-4.8 [facility] Comment on above: Performed By: #### L 500.4100, L500.4050 #### [facility] [address] [place], [address] Albumin/Globulin [Mass ratio] 1.7 {ratio} Normal 0.9-2.4 [facility] Comment on above: Performed By: #### L 500.4100, L500.4050 #### [facility] [address] [place], [address] ALK PHOS 55 U/L Normal 40-129 [facility] Comment on above: Performed By: #### L 500.4100, L500.4050 #### [facility] [address] [place], [address] ALT [Catalytic activity/Vol] 18 U/L Normal <=46 [facility] Comment on above: Performed By: #### L 500.4100, L500.4050 #### [facility] [address] [place], [address] Anion gap [Moles/Vol] 12 mmol/L Normal 5-15 [facility] Comment on above: Performed By: #### L 500.4100, L500.4050 #### [facility] [address] [place], [address] AST [Catalytic activity/Vol] 18 U/L Normal <=37 [facility] Comment on above: Performed By: #### L 500.4100, L500.4050 #### [facility] [address] [place], [address] Bilirubin [Mass/Vol] 0.36 mg/dL Normal 0.00-1.30 [facility] Comment on above: Performed By: #### L 500.4100, L500.4050 #### [facility] [address] [place], [address] BUN/CRE 29.2 RATIO High 10-20 [facility] Comment on above: Performed By: #### L 500.4100, L500.4050 #### [facility] [address] [place], [address] Calcium [Mass/Vol] 10.1 mg/dL Normal 7.6-11.0 [facility] Comment on above: Performed By: #### L 500.4100, L500.4050 #### [facility] [address] [place], [address] Chloride [Moles/Vol] 105 mmol/L Normal 96-108 [facility] Comment on above: Performed By: #### L 500.4100, L500.4050 #### [facility] [address] [place], [address] CO2 [Moles/Vol] 24.6 mmol/L Normal 22.0-29.0 [facility] Comment on above: Performed By: #### L 500.4100, L500.4050 #### [facility] [address] [place], [address] Creatinine [Mass/Vol] 0.9 mg/dL Normal 0.8-1.3 [facility] Comment on above: Performed By: #### L 500.4100, L500.4050 #### [facility] [address] [place], [address] GFR/1.73 sq M.predicted among non-blacks MDRD (S/P/Bld) [Vol rate/Area] 86 mL/min/{1.73_m2} Normal >60 [facility] Comment on above: Result Comment: mL/m in/1.73m2 CKD-EPI Creatinine Equation (2020) Performed By: #### L 500.4100, L500.4050 #### [facility] [address] [place], [address] Globulin (S) [Mass/Vol] 2.7 g/dL Normal 2.2-4.2 [facility] Comment on above: Performed By: #### L 500.4100, L500.4050 #### [facility] [address] [place], [address] Glucose [Mass/Vol] 125 mg/dL High 70-99 [facility] Comment on above: Performed By: #### L 500.4100, L500.4050 #### [facility] [address] [place], [address] Potassium [Moles/Vol] 4.9 mmol/L Normal 3.3-5.1 [facility] Comment on above: Performed By: #### L 500.4100, L500.4050 #### [facility] [address] [place], [address] Sodium [Moles/Vol] 141 mmol/L Normal 133-145 [facility] Comment on above: Performed By: #### L 500.4100, L500.4050 #### [facility] [address] [place], [address] T PROT 7.3 g/dL Normal 5.9-8.4 [facility] Comment on above: Performed By: #### L 500.4100, L500.4050 #### [facility] [address] [place], [address] Urea nitrogen [Mass/Vol] 27 mg/dL High 4-19 [facility] Comment on above: Performed By: #### L 500.4100, L500.4050 #### [facility] [address] [place], [address] ALB Normal 3.2-5.0 [facility] Comment on above: Result Comment: PUTT ING UNDER DIFFERENT REQ Performed By: #### L 501.9985, L500.4100, L500.4050, L100.0100, L502.0250 #### [facility] [address] [place], [address] ALK PHOS Normal 45-117 [facility] Comment on above: Result Comment: PUTT ING UNDER DIFFERENT REQ Performed By: #### L 501.9985, L500.4100, L500.4050, L100.0100, L502.0250 #### [facility] [address] [place], [address] ALT Normal 16-61 [facility] Comment on above: Result Comment: PUTT ING UNDER DIFFERENT REQ Performed By: #### L 501.9985, L500.4100, L500.4050, L100.0100, L502.0250 #### [facility] [address] [place], [address] AST Normal 15-37 [facility] Comment on above: Result Comment: PUTT ING UNDER DIFFERENT REQ Performed By: #### L 501.9985, L500.4100, L500.4050, L100.0100, L502.0250 #### [facility] [address] [place], [address] BUN Normal 7-18 [facility] Comment on above: Result Comment: PUTT ING UNDER DIFFERENT REQ Performed By: #### L 501.9985, L500.4100, L500.4050, L100.0100, L502.0250 #### [facility] [address] [place], [address] BUN/CRE Normal 10-20 [facility] Comment on above: Result Comment: PUTT ING UNDER DIFFERENT REQ Performed By: #### L 501.9985, L500.4100, L500.4050, L100.0100, L502.0250 #### [facility] [address] [place], [address] Calcium Normal 8.5-10.1 [facility] Comment on above: Result Comment: PUTT ING UNDER DIFFERENT REQ Performed By: #### L 501.9985, L500.4100, L500.4050, L100.0100, L502.0250 #### [facility] [address] [place], [address] CL Normal 98-107 [facility] Comment on above: Result Comment: PUTT ING UNDER DIFFERENT REQ Performed By: #### L 501.9985, L500.4100, L500.4050, L100.0100, L502.0250 #### [facility] [address] [place], [address] CO2 Normal 21.0-32.0 [facility] Comment on above: Result Comment: PUTT ING UNDER DIFFERENT REQ Performed By: #### L 501.9985, L500.4100, L500.4050, L100.0100, L502.0250 #### [facility] [address] [place], [address] CREAT,SERUM Normal 0.70-1.30 [facility] Comment on above: Result Comment: PUTT ING UNDER DIFFERENT REQ Performed By: #### L 501.9985, L500.4100, L500.4050, L100.0100, L502.0250 #### [facility] [address] [place], [address] eGFR Normal >60 [facility] Comment on above: Result Comment: PUTT ING UNDER DIFFERENT REQ Performed By: #### L 501.9985, L500.4100, L500.4050, L100.0100, L502.0250 #### [facility] [address] [place], [address] EST GFR - AA Normal >60 [facility] Comment on above: Result Comment: PUTT ING UNDER DIFFERENT REQ Performed By: #### L 501.9985, L500.4100, L500.4050, L100.0100, L502.0250 #### [facility] [address] [place], [address] GAP Normal 5-15 [facility] Comment on above: Result Comment: PUTT ING UNDER DIFFERENT REQ Performed By: #### L 501.9985, L500.4100, L500.4050, L100.0100, L502.0250 #### [facility] [address] [place], [address] GLU Normal 74-106 [facility] Comment on above: Result Comment: PUTT ING UNDER DIFFERENT REQ Performed By: #### L 501.9985, L500.4100, L500.4050, L100.0100, L502.0250 #### [facility] [address] [place], [address] Potassium Normal 3.5-5.1 [facility] Comment on above: Result Comment: PUTT ING UNDER DIFFERENT REQ Performed By: #### L 501.9985, L500.4100, L500.4050, L100.0100, L502.0250 #### [facility] [address] [place], [address] T BILI Normal 0.20-1.00 [facility] Comment on above: Result Comment: PUTT ING UNDER DIFFERENT REQ Performed By: #### L 501.9985, L500.4100, L500.4050, L100.0100, L502.0250 #### [facility] [address] [place], [address] T PROT Normal 6.4-8.2 [facility] Comment on above: Result Comment: PUTT ING UNDER DIFFERENT REQ Performed By: #### L 501.9985, L500.4100, L500.4050, L100.0100, L502.0250 #### [facility] [address] [place], [address] Comprehensive Metabolic Profil Normal 136-145 [facility] Comment on above: Result Comment: PUTT ING UNDER DIFFERENT REQ Performed By: #### L 501.9985, L500.4100, L500.4050, L100.0100, L502.0250 #### [facility] [address] [place], [address] Creatinine Unsp time (U) [Ma ss/Vol]Ordered By: Jayro Campos on 09-14-2024 Creatinine (U) [Mass/Vol] 79.20 mg/dL NO RANGE EST. [facility] Creatinine [Moles/Vol]Ordere d By: Jayro Campos on 09-14-2024 Creatinine [Mass/Vol] 0.9 mg/dL 0.8-1.3 [facility] Eosinophil percentageOrdered By: Jayro Campos on 09-14-2024 Eosinophils/100 WBC (Bld) 1.7 % 0-5 [facility] Erythrocyte distribution wid th ratioOrdered By: Jayro Campos on 09-14-2024 Erythrocyte distribution width (RBC) [Ratio] 13.2 % 11.6-14.6 [facility] Erythrocyte distribution wid th standard deviationOrdered By: Jayro Campos on 09-14-2024 Erythrocyte distribution width (RBC) [Entitic vol] 44.8 fL High 35.1-43.9 [facility] GFR/1.73 sq M.predicted katelyn g non-blacks MDRD (S/P/Bld) [Vol rate/Area]Ordered By: Jayro Campos on 09-14-2024 Estimated GFR (MDRD) Non-Af Amer 86 >60 [facility] Comment on above: mL/min/1.73m2 CKD-EP I Creatinine Equation (2020) Hematocrit Auto (Bld) [Volum e fraction]Ordered By: Jayro Campos on 09-14-2024 Hematocrit (Bld) [Volume fraction] 44.9 % 40-54 [facility] Hemoglobin A1c percentageOrd ered By: Jayro Campos on 09-14-2024 HbA1c (Bld) [Mass fraction] 6.6 % >5.7 [facility] Hemoglobin measurementOrdere d By: Jayro Campos on 09-14-2024 Hemoglobin (Bld) [Mass/Vol] 14.1 g/dL 13.0-16.5 [facility] Immature granulocytes/100 WB C Auto (Bld)Ordered By: Jayro Campos on 09-14-2024 Immature granulocytes/100 WBC (Bld) 0.300 % 0.0-0.9 [facility] Comment on above: IG% - Immature Granu locytes (promyelocytes, myelocytes and metamyelocytes) > 1% indicates that a LEFT SHIFT is Present. Laboratory - Chemistry and C hemistry - challengeOrdered By: Jayro Campos on 09-14-2024 AST [Catalytic activity/Vol] 18 U/L <38 [facility] Lipid Profileon 09-14-2024 Cholesterol in LDL [Mass/Vol] 91 mg/dL Normal 0-130 [facility] Comment on above: Performed By: #### L 500.4100, L500.4050 #### [facility] [address] [place], [address] [facility] Comment on above: Result Comment: PUTT ING UNDER DIFFERENT REQ The drugs N-Acetylcysteine and Metamizole may falsely depress this assay. Performed By: #### L 501.9985, L500.4100, L500.4050, L100.0100, L502.0250 #### [facility] [address] [place], [address] [facility] Comment on above: Result Comment: PUTT ING UNDER DIFFERENT REQ The drugs N-Acetylcysteine and Metamizole may falsely depress this assay. Performed By: #### L 501.9985, L500.4100, L500.4050, L100.0100, L502.0250 #### [facility] [address] [place], [address] [facility] Comment on above: Result Comment: PUTT ING UNDER DIFFERENT REQ Performed By: #### L [id number], L500.4100, L500.4050, L100.0100, L502.0250 #### [facility] [address] [place], [address] LDL Normal 0-130 [facility] Comment on above: Result Comment: PUTT ING UNDER DIFFERENT REQ Performed By: #### L [id number], L500.4100, L500.4050, L100.0100, L502.0250 #### [facility] [address] [place], [address] VLDL Normal 5-40 [facility] Comment on above: Result Comment: PUTT ING UNDER DIFFERENT REQ Performed By: #### L [id number], L500.4100, L500.4050, L100.0100, L502.0250 #### [facility] [address] [place], [address] Low density lipoprotein (LDL ) cholesterol measurementOrdered By: Jayro Campos on 09-14-2024 Cholesterol in LDL [Mass/Vol] 91 mg/dL 0-130 [facility] Lymphocytes Auto (Unsp spec) [#/Vol]Ordered By: Jayro Campos on 09-14-2024 Lymphocytes (Bld) [#/Vol] 2.33 10*3/uL 0.83-4.[address] [facility] Lymphocytes/100 WBC Auto (Un sp spec)Ordered By: Jayro Campos on 09-14-2024 Lymphocytes/100 WBC (Bld) 26.5 % 19-41 [facility] MCV (mean corpuscular volume ) determinationOrdered By: Jayro Campos on 09-14-2024 MCV (RBC) [Entitic vol] 91.6 fL 80-94 [facility] Mean corpuscular hemoglobin (MCH) determinationOrdered By: Jayro Campos on 09-14-2024 MCH (RBC) [Entitic mass] 28.8 pg 27.0-32.0 [facility] Mean corpuscular hemoglobin concentration (MCHC) determinationOrdered By: Jayro Campos on 09-14-2024 MCHC (RBC) [Mass/Vol] 31.4 g/dL Low 32-36 [facility] Mean platelet volume determi nationOrdered By: Jayro Campos on 09-14-2024 Platelet mean volume (Bld) [Entitic vol] 11.6 fL 6.2-12.0 [facility] Microalb:Creat Ratio,Random URon 09-14-2024 MALB:CRE Normal <30 mg/g CRE [facility] Comment on above: Result Comment: REOR ALEJANDRO Performed By: #### L [id number], L500.4100, L500.4050, L100.0100, L502.0250 #### [facility] [address] [facility] [place], [address] Microalbumin/creat ratio urO rdered By: Jayro Campos on 09-14-2024 Urine Microalbumin/Creatinine Ratio 15.0 mg/g CRE [facility] Monocyte percentageOrdered B y: Jayro Campos on 09-14-2024 Monocytes/100 WBC (Bld) 8.0 % 0-10 [facility] Neutrophil percentageOrdered By: Jayro Campos on 09-14-2024 Neutrophils/100 WBC (Bld) 62.4 % 47-70 [facility] Nucleated red blood cell per centageOrdered By: Jayro Campos on 09-14-2024 Nucleated RBC/100 WBC (Bld) [Ratio] 0 % 0-5 [facility] Platelet countOrdered By: Hernando Campos on 09-14-2024 Platelets (Bld) [#/Vol] 253 10*3/uL 150-450 [facility] RBC Auto (Bld) [#/Vol]Ordere d By: Jayro Campos on 09-14-2024 RBC (Bld) [#/Vol] 4.90 10*6/uL 4.6-6.2 [facility] Serum globulin measurementOr dered By: Jayro Campos on 09-14-2024 Globulin (S) [Mass/Vol] 2.7 g/dL 2.2-4.2 [facility] Serum glucose measurement (m ass/volume)Ordered By: Jayro Campos on 09-14-2024 Glucose [Mass/Vol] 125 mg/dL High 70-99 [facility] Serum or plasma alanine reich otransferase (ALT) measurementOrdered By: Jayro Campos on 09-14-2024 ALT [Catalytic activity/Vol] 18 U/L <47 [facility] Serum or plasma albumin palma urement (mass/volume)Ordered By: Jayro Campos on 09-14-2024 Albumin [Mass/Vol] 4.5 g/dL 3.4-4.8 [facility] Serum or plasma albumin/glob ulin mass ratioOrdered By: Jayro Campos on 09-14-2024 Albumin/Globulin [Mass ratio] 1.7 {ratio} 0.9-2.4 [facility] Serum or plasma alkaline hailee sphatase measurementOrdered By: Jayro Campos on 09-14-2024 ALP [Catalytic activity/Vol] 55 U/L 40-129 [facility] Serum or plasma anion gap de termination (moles/volume)Ordered By: Jayro Campos on 09-14-2024 Anion gap [Moles/Vol] 12 mmol/L 5-15 [facility] Serum or plasma calcium palma urement (mass/volume)Ordered By: Jayro Campos on 09-14-2024 Calcium [Mass/Vol] 10.1 mg/dL 7.6-11.0 [facility] Serum or plasma cholesterol in HDL measurement (mass/volume)Ordered By: Jayro Campos on 09-14-2024 Cholesterol in HDL [Mass/Vol] 42 mg/dL >40 [facility] Comment on above: The drugs N-Acetylcy steine and Metamizole may falsely depress this assay. National Cholesterol Education Program (NCEP) guidelines:<40 mg/dL: Low HDL-cholesterol (major risk factor for CHD)>= 60 mg/dL: High HDL-cholesterol (negative risk factor for CHD)HDL-cholesterol is affected by a number of factors, e.g. smoking, exercise, hormones, sex and age. Serum or plasma cholesterol measurement (mass/volume)Ordered By: Jayro Campos on 09-14-2024 Cholesterol [Mass/Vol] 162 mg/dL <201 [facility] Comment on above: Cholesterol level, D esirable <200 mg/dLBorderline high cholesterol 200-239 mg/dLHigh cholesterol >=240 mg/dLRecommendations of the NCEP Adult Treatment Panel for the following risk-cutoff thresholds for the [place] population. Serum or plasma potassium me asurementOrdered By: Jayro Campos on 09-14-2024 Potassium [Moles/Vol] 4.9 mmol/L 3.3-5.1 [facility] Serum or plasma sodium measu rement (moles/volume)Ordered By: Jayro Campos on 09-14-2024 Sodium [Moles/Vol] 141 mmol/L 133-145 [facility] Serum or plasma urea nitroge n measurement (mass/volume)Ordered By: Jayro Campos on 09-14-2024 Urea nitrogen [Mass/Vol] 27 mg/dL High 4-19 [facility] Total proteinOrdered By: Heather Campos on 09-14-2024 Protein [Mass/Vol] 7.3 g/dL 5.9-8.4 [facility] Triglycerides measurementOrd ered By: Jayro Campos on 09-14-2024 Triglyceride [Mass/Vol] 146 mg/dL <199 [facility] Comment on above: The drugs N-Acetylcy steine and Metamizole may falsely depress this assay. Normal range: <150 mg/dLBorderline High: 150-199 mg/dLHigh: 200-499 mg/dLVery High: >500 mg/dL White blood cell (WBC) count Ordered By: Jayro Campos on 09-14-2024 WBC (Bld) [#/Vol] 8.8 10*3/uL 4.4-11.0 [facility] Absolute lymphocyte countOrd ered By: Jayro Campos on 08-21-2023 Lymphocytes Auto (Unsp spec) [#/Vol] 2.07 10*3/uL 0.83-4.51 [facility] Automated lymphocyte count a s percentage of total leukocytesOrdered By: Jayro Campos on 08-21-2023 Lymphocytes/100 WBC Auto (Unsp spec) 19.8 % 19-41 [facility] Basophil percentageOrdered B y: Jayro Campos on 08-21-2023 Basophils/100 WBC (Bld) 0.9 % 0-1 [facility] Bilirubin [Mass/Vol] 0.30 mg/dL 0.20-1.00 [facility] Comment on above: For patients on eltr ombopag therapy, use of Dimension [place] TBIL is not recommended. Chloride [Moles/Vol] 110 mmol/L 98-107 [facility] Cholesterol [Mass/Vol] 130 mg/dL <200 [facility] Comment on above: <200 mg/dL Desirable 200-240 mg/dL Borderline >240 mg/dL High Risk Eosinophils/100 WBC (Bld) 3.0 % 0-5 [facility] Glucose [Mass/Vol] 115 mg/dL 74-106 [facility] Comment on above: Fasting Glucose resu lt from 100 to 125 mg/dL suggests IMPAIRED HOMEOSTASIS per A.D.A. criteria. Hemoglobin (Bld) [Mass/Vol] 13.2 g/dL 13.0-16.5 [facility] Monocytes/100 WBC (Bld) 7.0 % 0-10 [facility] Neutrophils (Bld) [#/Vol] 7.3 10*3/uL 2.0-7.7 [facility] Neutrophils/100 WBC (Bld) 69.1 % 47-70 [facility] Potassium [Moles/Vol] 4.4 mmol/L 3.5-5.1 [facility] Protein [Mass/Vol] 7.3 g/dL 6.4-8.2 [facility] Sodium [Moles/Vol] 140 mmol/L 136-145 [facility] Triglyceride [Mass/Vol] 141 mg/dL <199 [facility] Comment on above: The drugs N-Acetylcy steine and Metamizole may falsely depress this assay.Serum Triglycerides Reference Interval Normal <150 mg/dL Borderline high 150 - 199 mg/dL High 200 - 499 mg/dL Very High > or = 500 mg/dL WBC (Bld) [#/Vol] 10.5 10*3/uL 4.4-11.0 [facility] Determination of erythrocyte mean corpuscular volume (MCV)Ordered By: Jayro Campos on 08-21-2023 MCV (RBC) [Entitic vol] 90.9 fL 80-94 [facility] Erythrocyte distribution wid th ratioOrdered By: Jayro Campos on 08-21-2023 Erythrocyte distribution width (RBC) [Ratio] 13.0 % 11.6-14.6 [facility] Erythrocyte distribution wid th standard deviationOrdered By: Jayro Campos on 08-21-2023 Erythrocyte distribution width (RBC) [Entitic vol] 42.8 fL 35.1-43.9 [facility] Hematocrit Auto (Bld) [Volum e fraction]Ordered By: Jayro Campos on 08-21-2023 Hematocrit (Bld) [Volume fraction] 42.2 % 40-54 [facility] Immature granulocytes/100 WB C Auto (Bld)Ordered By: Jayro Campos on 08-21-2023 Immature granulocytes/100 WBC (Bld) 0.200 % 0.0-0.9 [facility] Comment on above: IG% - Immature Granu locytes (promyelocytes, myelocytes and metamyelocytes) > 1% indicates that a LEFT SHIFT is Present. Laboratory - Chemistry and C hemistry - challengeOrdered By: Jayro Campos on 08-21-2023 Albumin/Creatinine DL <= 1.0 mg/L (24H U) [Ratio] 6.5 mg/g CRE <30 [facility] Albumin/Globulin [Mass ratio] 1.2 {ratio} 0.9-2.4 [facility] ALP [Catalytic activity/Vol] 76 U/L 45-117 [facility] ALT [Catalytic activity/Vol] 30 U/L 16-61 [facility] Cholesterol in HDL (Body fld) [Mass/Vol] 36 mg/dL >40 [facility] Comment on above: The drugs N-Acetylcy steine and Metamizole may falsely depress this assay. Reference Range HDL <40 mg/dL Low HDL Cholesterol HDL >or= 60 mg/dL High HDL Cholesterol Cholesterol in LDL (Body fld) [Moles/Vol] 66 mg/dL 0-130 [facility] Cholesterol in VLDL Calc [Moles/Vol] 28 mg/dL 5-40 [facility] CO2 [Moles/Vol] 26.0 mmol/L 21.0-32.0 [facility] Globulin (S) [Mass/Vol] 3.3 g/dL 2.2-4.2 [facility] Urea nitrogen/Creatinine [Mass ratio] 23.8 mg/mg 10-20 [facility] - Hematology and Cell countsOrdered By: Jayro Campos on 08-21-2023 MCH (RBC) [Entitic mass] 28.4 pg 27.0-32.0 [facility] MCHC (RBC) [Mass/Vol] 31.3 g/dL 32-36 [facility] Nucleated RBC/100 WBC (Bld) [Ratio] 0 % 0-5 [facility] Platelets (Bld) [#/Vol] 266 10*3/uL 150-450 [facility] No Panel InformationOrdered By: Jayro Campos on 08-21-2023 Estimated GFR (MDRD) Amer 89 mL/min >60 [facility] Comment on above: GFR Calc Estimated GFR (MDRD) Non-Af Amer 74 mL/min >60 [facility] Comment on above: Non- GFR Calc Platelet mean volume Laron-Ec ker (Bld) [Entitic vol]Ordered By: Jayro Campos on 08-21-2023 Platelet mean volume (Bld) [Entitic vol] 11.4 fL 6.2-12.0 [facility] RBC Auto (Bld) [#/Vol]Ordere d By: Jayro Campos on 08-21-2023 RBC (Bld) [#/Vol] 4.64 10*6/uL 4.6-6.2 [facility] Serum or plasma calcium palma urement (mass/volume)Ordered By: Jayro Campos on 08-21-2023 Calcium [Mass/Vol] 9.7 mg/dL 8.5-10.1 [facility] Serum or plasma creatinine m easurement (mass/volume)Ordered By: Jayro Campos on 08-21-2023 Creatinine [Mass/Vol] 1.05 mg/dL 0.70-1.30 [facility] Comment on above: The validity of the calculated GFR & GFRAA in patients over 70 years has not been determined. Clinical correlation is essential. Serum or plasma urea nitroge n measurement (mass/volume)Ordered By: Jayro Campos on 08-21-2023 Urea nitrogen [Mass/Vol] 25 mg/dL 7-18 [facility] Serum or plasma uric acid me asurement (mass/volume)Ordered By: Jayro Campos on 08-21-2023 Urate [Mass/Vol] 4.9 mg/dL 3.5-7.2 [facility] Comment on above: The drugs N-Acetylcy steine and Metamizole may falsely depress this assay. Thin prep Papanicolaou smear with manual screeningOrdered By: Jayro Campos on 08-21-2023 Thin prep Papanicolaou smear with manual screening 4.0 g/dL 3.2-5.0 [facility] Thin prep Papanicolaou smear with manual screening 17 U/L 15-37 [facility] Thin prep Papanicolaou smear with manual screening 4 5-15 [facility] Thin prep Papanicolaou smear with manual screening 5.6 mg/L NO RANGE EST. [facility] Urine creatinine measurement (mass/volume)Ordered By: Jayro Campos on 08-21-2023 Creatinine (U) [Mass/Vol] 87.40 mg/dL NO RANGE EST. [facility] Whole blood hemoglobin A1c/t otal hemoglobin ratio (mass fraction)Ordered By: Jayro Campos on 08-21-2023 HbA1c (Bld) [Mass fraction] 6.7 % 3.8-5.6 [facility] Comment on above: Normal < 5.7 % Predi abetic 5.7 - 6.4 % Diabetic >or= 6.5 % Please note range changes. Absolute lymphocyte countOrd ered By: Dr. Campos on 08-20-2022 Lymphocytes Auto (Unsp spec) [#/Vol] 2.43 10*3/uL 0.83-4.51 [facility] Basophil percentageOrdered B y: Dr. Campos on 08-20-2022 Basophils/100 WBC (Bld) 0.9 % 0-1 [facility] Bilirubin [Mass/Vol] 0.60 mg/dL 0.20-1.00 [facility] Comment on above: For patients on eltr ombopag therapy, use of Dimension [place] TBIL is not recommended. Chloride [Moles/Vol] 106 mmol/L 98-107 [facility] Cholesterol [Mass/Vol] 126 mg/dL <200 [facility] Comment on above: <200 mg/dL Desirable 200-240 mg/dL Borderline >240 mg/dL High Risk Eosinophils/100 WBC (Bld) 2.1 % 0-5 [facility] Glucose [Mass/Vol] 135 mg/dL 74-106 [facility] Comment on above: Fasting Glucose resu lt greater than or equal to 126 mg/dL suggests DIABETES MELLITUS per A.D.A. criteria. Neutrophils (Bld) [#/Vol] 4.7 10*3/uL 2.0-7.7 [facility] Neutrophils/100 WBC (Bld) 58.7 % 47-70 [facility] Potassium [Moles/Vol] 4.4 mmol/L 3.5-5.1 [facility] Protein [Mass/Vol] 7.4 g/dL 6.4-8.2 [facility] Sodium [Moles/Vol] 142 mmol/L 136-145 [facility] Triglyceride [Mass/Vol] 107 mg/dL <199 [facility] Comment on above: The drugs N-Acetylcy steine and Metamizole may falsely depress this assay.Serum Triglycerides Reference Interval Normal <150 mg/dL Borderline high 150 - 199 mg/dL High 200 - 499 mg/dL Very High > or = 500 mg/dL WBC (Bld) [#/Vol] 8.0 10*3/uL 4.4-11.0 [facility] Blood erythrocytes count (nu mber/volume)Ordered By: Dr. Campos on 08-20-2022 RBC (Bld) [#/Vol] 5.21 10*6/uL 4.6-6.2 [facility] Blood hemoglobin measurement (mass/volume)Ordered By: Dr. Campos on 08-20-2022 Hemoglobin (Bld) [Mass/Vol] 14.9 g/dL 13.0-16.5 [facility] Blood lymphocytes/100 leukoc ytesOrdered By: Dr. Campos on 08-20-2022 Lymphocytes/100 WBC (Bld) 30.3 % 19-41 [facility] Blood monocytes/100 leukocyt esOrdered By: Dr. Campos on 08-20-2022 Monocytes/100 WBC (Bld) 7.9 % 0-10 [facility] Blood platelet mean volumeOr dered By: Dr. Campos on 08-20-2022 Platelet mean volume (Bld) [Entitic vol] 11.5 fL 6.2-12.0 [facility] Determination of erythrocyte mean corpuscular volume (MCV)Ordered By: Dr. Campos on 08-20-2022 MCV (RBC) [Entitic vol] 90.8 fL 80-94 [facility] Hematocrit Auto (Bld) [Volum e fraction]Ordered By: Dr. Campos on 08-20-2022 Hematocrit (Bld) [Volume fraction] 47.3 % 40-54 [facility] - Chemistry and C hemistry - challengeOrdered By: Dr. Campos on 08-20-2022 ALP [Catalytic activity/Vol] 74 U/L 45-117 [facility] ALT [Catalytic activity/Vol] 21 U/L 16-61 [facility] CO2 [Moles/Vol] 28.0 mmol/L 21.0-32.0 [facility] Globulin (S) [Mass/Vol] 3.3 g/dL 2.2-4.2 [facility] Urea nitrogen/Creatinine [Mass ratio] 25.4 mg/mg 10-20 [facility] - Hematology and Cell countsOrdered By: Dr. Campos on 08-20-2022 Erythrocyte distribution width (RBC) [Entitic vol] 46.5 fL 35.1-43.9 [facility] Erythrocyte distribution width (RBC) [Ratio] 14.0 % 11.6-14.6 [facility] Immature granulocytes/100 WBC (Bld) 0.100 % 0.0-0.9 [facility] Comment on above: IG% - Immature Granu locytes (promyelocytes, myelocytes and metamyelocytes) > 1% indicates that a LEFT SHIFT is Present. MCH (RBC) [Entitic mass] 28.6 pg 27.0-32.0 [facility] Nucleated RBC/100 [facility] (Bld) [[facility]] 0 [facility] [Mass/Vol]Or dered By: Dr. Campos on 08-20-2022 MCHC (RBC) [Mass/Vol] 31.5 g/dL 32-36 [facility] No Panel InformationOrdered By: Dr. Campos on 08-20-2022 Estimated GFR (MDRD) Amer 96 mL/min >60 [facility] Comment on above: GFR Calc Estimated GFR (MDRD) Non-Af Amer 80 mL/min >60 [facility] Comment on above: Non- GFR Calc Prostate Specific Antigen Screen 2.26 ng/mL 0.00-4.00 [facility] Comment on above: This test was perfor med using the TPSA assay method for thetritrue chemistry system. Values obtained with differentassay methods cannot be used interchangably.When changing PSA assays in the course of monitoring apatient, additional sequential testing should be carriedout to confirm baseline values. Platelets bldOrdered By: Dr. Campos on 08-20-2022 Platelets (Bld) [#/Vol] 248 10*3/uL 150-450 [facility] Serum or plasma albumin palma urement (mass/volume)Ordered By: Dr. Campos on 08-20-2022 Albumin [Mass/Vol] 4.1 g/dL 3.2-5.0 [facility] Serum or plasma albumin/glob ulin mass ratioOrdered By: Dr. Campos on 08-20-2022 Albumin/Globulin [Mass ratio] 1.2 {ratio} 0.9-2.4 [facility] Serum or plasma calcium palma urement (mass/volume)Ordered By: Dr. Campos on 08-20-2022 Calcium [Mass/Vol] 9.3 mg/dL 8.5-10.1 [facility] Serum or plasma cholesterol in HDL measurement (mass/volume)Ordered By: Dr. Campos on 08-20-2022 Cholesterol in HDL [Mass/Vol] 46 mg/dL >40 [facility] Comment on above: The drugs N-Acetylcy steine and Metamizole may falsely depress this assay. Reference Range HDL <40 mg/dL Low HDL Cholesterol HDL >or= 60 mg/dL High HDL Cholesterol Serum or plasma cholesterol in VLDL measurement (mass/volume)Ordered By: Dr. Campos on 08-20-2022 Cholesterol in VLDL [Mass/Vol] 21 mg/dL 5-40 [facility] Serum or plasma creatinine m easurement (mass/volume)Ordered By: Dr. Campos on 08-20-2022 Creatinine [Mass/Vol] 0.98 mg/dL 0.70-1.30 [facility] Comment on above: The validity of the calculated GFR & GFRAA in patients over 70 years has not been determined. Clinical correlation is essential. Serum or plasma low density lipoprotein (LDL) cholesterol measurement (mass/volume)Ordered By: Dr. Campos on 08-20-2022 Cholesterol in LDL [Mass/Vol] 59 mg/dL 0-130 [facility] Serum or plasma urea nitroge n measurement (mass/volume)Ordered By: Dr. Campos on 08-20-2022 Urea nitrogen [Mass/Vol] 25 mg/dL 7-18 [facility] Thin prep Papanicolaou smear with manual screeningOrdered By: Dr. Campos on 08-20-2022 Thin prep Papanicolaou smear with manual screening 16 U/L 15-37 [facility] Thin prep Papanicolaou smear with manual screening 8 5-15 [facility] Whole blood hemoglobin A1c/t otal hemoglobin ratio (mass fraction)Ordered By: Dr. Campos on 08-20-2022 HbA1c (Bld) [Mass fraction] 6.6 % 3.8-5.6 [facility] Comment on above: Normal < 5.7 % Predi abetic 5.7 - 6.4 % Diabetic >or= 6.5 % Please note range changes. Laboratory - Microbiology an d Antimicrobial susceptibilityOrdered By: Dr. Fitzgerald on 06-02-2022 Bacteria identified Cx Nom (Bld) No growth in [address] [facility] Respiratory pathogens DNA an d RNA 12b panel SASHA+probe (Unsp spec)Ordered By: Dr. Fitzgerald on 05-29-2022 Respiratory Panel (PCR) Human [place] [facility] Absolute lymphocyte countOrd ered By: Dr. Fitzgerald on 05-28-2022 Lymphocytes Auto (Unsp spec) [#/Vol] 1.63 10*3/uL 0.83-4.51 [facility] Basophil percentageOrdered B y: Dr. Fitzgerald on 05-28-2022 Lactate [Moles/Vol] 1.7 mmol/L 0.4-2.0 [facility] Basophil percentage Not Reportable [facility] Bilirubin [Mass/Vol] 0.70 mg/dL 0.20-1.00 [facility] Comment on above: For patients on eltr ombopag therapy, use of Dimension [place] TBIL is not recommended. Chloride [Moles/Vol] 100 mmol/L 98-107 [facility] Glucose [Mass/Vol] 282 mg/dL 74-106 [facility] Comment on above: Glucose result great er than or equal to 200 mg/dLsuggests DIABETES MELLITUS per A.D.A. criteria. Neutrophils (Bld) [#/Vol] 18.0 10*3/uL 2.0-7.7 [facility] Potassium [Moles/Vol] 4.1 mmol/L 3.5-5.1 [facility] Protein [Mass/Vol] 6.5 g/dL 6.4-8.2 [facility] Sodium [Moles/Vol] 131 mmol/L 136-145 [facility] WBC (Bld) [#/Vol] 20.4 10*3/uL 4.4-11.0 [facility] Blood band neutrophil count as percentage of total leukocytesOrdered By: Dr. Fitzgerald on 05-28-2022 Band form neutrophils/100 WBC (Bld) 28 % 0-5 [facility] Blood erythrocytes count (nu mber/volume)Ordered By: Dr. Fitzgerald on 05-28-2022 RBC (Bld) [#/Vol] 4.12 10*6/uL 4.6-6.2 [facility] Blood hemoglobin measurement (mass/volume)Ordered By: Dr. Fitzgerald on 05-28-2022 Hemoglobin (Bld) [Mass/Vol] 12.0 g/dL 13.0-16.5 [facility] Blood lymphocytes/100 leukoc ytesOrdered By: Dr. Fitzgerald on 05-28-2022 Lymphocytes/100 WBC (Bld) 8 % 19-41 [facility] Blood metamyelocytes/100 yocasta kocytesOrdered By: Dr. Fitzgerald on 05-28-2022 Metamyelocytes/100 WBC (Bld) 1 % 0-1 [facility] Blood monocytes/100 leukocyt esOrdered By: Dr. Fitzgerald on 05-28-2022 Monocytes/100 WBC (Bld) 3 % 0-10 [facility] Blood platelet adequacy dete ction by light microscopyOrdered By: Dr. Fitzgerald on 05-28-2022 Platelets LM Ql (Bld) ADEQUATE ADEQ [facility] Blood platelet mean volumeOr dered By: Dr. Fitzgerald on 05-28-2022 Platelet mean volume (Bld) [Entitic vol] 10.7 fL 6.2-12.0 [facility] Blood segmented neutrophils/ [address]: [address] Fitzgerald on 05-28-2022 Segmented neutrophils/100 WBC (Bld) 60 % 47-70 [facility] Determination of erythrocyte mean corpuscular volume (MCV)Ordered By: Dr. Fitzgerald on 05-28-2022 MCV (RBC) [Entitic vol] 87.9 fL 80-94 [facility] Dohle bodies detectionOrdere d By: Dr. Fitzgerald on 05-28-2022 Dohle body LM Ql (Bld) 1+ Wo [facility] Glucose Glucometer (BldC) [M ass/Vol]Ordered By: Dr. Fitzgerald on 05-28-2022 Glucose [Mass/Vol] 127 mg/dL 74-106 [facility] Comment on above: MANAGEMENT OF PATIEN T CARE PER NURSING PROTOCOL Hematocrit Auto (Bld) [Volum e fraction]Ordered By: Dr. Fitzgerald on 05-28-2022 Hematocrit (Bld) [Volume fraction] 36.2 % 40-54 [facility] - Chemistry and C hemistry - challengeOrdered By: Dr. Fitzgerald on 05-28-2022 ALP [Catalytic activity/Vol] 70 U/L 45-117 [facility] ALT [Catalytic activity/Vol] 21 U/L 16-61 [facility] CO2 [Moles/Vol] 23.0 mmol/L 21.0-32.0 [facility] Globulin (S) [Mass/Vol] 3.8 g/dL 2.2-4.2 [facility] Urea nitrogen/Creatinine [Mass ratio] 25.3 mg/mg 10-20 [facility] - Hematology and Cell countsOrdered By: Dr. Fitzgerald on 05-28-2022 Erythrocyte distribution width (RBC) [Entitic vol] 41.0 fL 35.1-43.9 [facility] Erythrocyte distribution width (RBC) [Ratio] 12.8 % 11.6-14.6 [facility] MCH (RBC) [Entitic mass] 29.1 pg 27.0-32.0 [facility] MCHC Auto (RBC) [Mass/Vol]Or dered By: Dr. Fitzgerald on 05-28-2022 MCHC (RBC) [Mass/Vol] 33.1 g/dL 32-36 [facility] No Panel InformationOrdered By: Dr. Fitzgerald on 05-28-2022 Estimated Creatinine Clearance Calc 39.10 ml/min [facility] Estimated GFR (MDRD) Amer 54 mL/min >60 [facility] Comment on above: GFR Calc Estimated GFR (MDRD) Non-Af Amer 45 mL/min >60 [facility] Comment on above: Non- GFR Calc Platelets bldOrdered By: Dr. Fitzgerald on 05-28-2022 Platelets (Bld) [#/Vol] 181 10*3/uL 150-450 [facility] RBC morphologyOrdered By: Dr Flaquita Fitzgerald on 05-28-2022 RBC morphology finding Nom (Bld) NORM C+C NORMAL NORM C&C [facility] Review by pathologistOrdered By: Dr. Fitzgerald on 05-28-2022 Pathologist review Fidencio (Unsp spec) [Interp] Reviewed [facility] Comment on above: Previous reported re sult: Jo bang Edited by: FABBY on 05/28/22:6385Neutrophilic leukocytosis.Clinical correlation necessary.Harvey Jin M.D. 05/28/22 AMENDED REPORT 05/28/22 1345 PATH REV previously reported as: Jo bang Serum or plasma albumin palma urement (mass/volume)Ordered By: Dr. Fitzgerald on 05-28-2022 Albumin [Mass/Vol] 2.7 g/dL 3.2-5.0 [facility] Serum or plasma albumin/glob ulin mass ratioOrdered By: Dr. Fitzgerald on 05-28-2022 Albumin/Globulin [Mass ratio] 0.7 {ratio} 0.9-2.4 [facility] Serum or plasma calcium palma urement (mass/volume)Ordered By: Dr. Fitzgerald on 05-28-2022 Calcium [Mass/Vol] 8.5 mg/dL 8.5-10.1 [facility] Serum or plasma creatinine m easurement (mass/volume)Ordered By: Dr. Fitzgerald on 05-28-2022 Creatinine [Mass/Vol] 1.62 mg/dL 0.70-1.30 [facility] Comment on above: The validity of the calculated GFR & GFRAA in patients over 70 years has not been determined. Clinical correlation is essential. Serum or plasma urea nitroge n measurement (mass/volume)Ordered By: Dr. Fitzgerald on 05-28-2022 Urea nitrogen [Mass/Vol] 41 mg/dL 7-18 [facility] Serum procalcitonin measurem entOrdered By: Dr. Fitzgerald on 05-28-2022 Procalcitonin [Mass/Vol] 19.55 ng/mL 0.00-0.09 [facility] Comment on above: A procalcitonin (PCT ) level above 2.0 ng/mL on the first day of ICU admission is associated with a high risk for progression to severe sepsis and/or septic shock. A PCT level below 0.5 ng/mL on the first day of ICU admission is associated with a low risk for progression to severe and/or septic shock. Note: Concentrations <0.5 ng/mL do not exclude an infection on account of localized infections (without systemic signs) which can be associated with such low concentrations, or a systemic infection in its initial stages (<6 hours). Furthermore, increased procalcitonin can occur without infection. PCT concentrations between 0.5 and 2.0 ng/mL should be interpreted taking into account the patient's history. It is recommended to retest PCT within 6-24 hours if any concentrations <2 ng/mL are obtained. Thin prep Papanicolaou smear with manual screeningOrdered By: Dr. Fitzgerald on 05-28-2022 Thin prep Papanicolaou smear with manual screening 19 U/L 15-37 [facility] Thin prep Papanicolaou smear with manual screening 8 5-15 [facility] Total cell countOrdered By: Dr. Fitzgerald on 05-28-2022 Cells counted Molgen (Bld/Tiss) [#] [address] [facility] - Microbiology an d Antimicrobial susceptibilityon 05-27-2022 SARS-CoV-2 (COVID-19) RNA SASHA+probe Ql (Unsp spec) Not detected [facility] No Panel Informationon 05-27 Influenza Types A,B Rapid (Clinic) Not detected [facility] Vital Signs Date Time Vital Sign Value Performing Clinician Faci lity 05-28-2022 15:21-0500 Diastolic blood pressure 76 mm[Hg] Dr. Carmine Jimenez Work Phone: [facility] 05-28-2022 15:21-0500 Heart rate 74 /min Dr. Carmine Jimenez Work Phone: [facility] 05-28-2022 15:21-0500 Respiratory rate 16 /min Dr. Carmine Jimenez Work Phone: [facility] 05-28-2022 15:21-0500 SaO2% (BldA) [Mass fraction] 98 % Dr. Carmine Jimenez Work Phone: [facility] 05-28-2022 15:21-0500 Systolic blood pressure 107 mm[Hg] Dr. Carmine Jimenez Work Phone: [facility] 05-28-2022 13:00-0500 Body temperature 98.2 [degF] Dr. Carmine Jimenez Work Phone: [facility] 05-28-2022 09:55-0500 Body height 170.[address] Carmine Jimenez Work Phone: [facility] 05-28-2022 09:55-0500 Body mass index (BMI) [Ratio] 25.5 kg/m2 Dr. Carmine Jimenez Work Phone: [facility] 05-28-2022 09:55-0500 Body weight [address] Carmine Jimenez Work Phone: [facility] 05-27-2022 14:11-0500 Body mass index (BMI) [Ratio] 25.7 kg/m2 Dr. Carmine Jimenez Work Phone: [facility] 05-27-2022 14:11-0500 Body temperature 98.4 [degF] Dr. Carmine Jimenez Work Phone: [facility] 05-27-2022 14:11-0500 Body weight 74.[address] Carmine Jimenez Work Phone: [facility] 05-27-2022 14:11-0500 Diastolic blood pressure 54 mm[Hg] Dr. Carmine Jimenez Work Phone: [facility] 05-27-2022 14:11-0500 Heart rate 105 /min Dr. Carmine Jimenez Work Phone: [facility] 05-27-2022 14:11-0500 Respiratory rate 14 /min Dr. Carmine Jimenez Work Phone: [facility] 05-27-2022 14:11-0500 SaO2% (BldA) [Mass fraction] 96 % Dr. Carmine Jimenez Work Phone: [facility] 05-27-2022 14:11-0500 Systolic blood pressure 118 mm[Hg] Dr. Carmine Jimenez Work Phone: [facility] Encounters Encounter Date Encounter Type Care Provider Facility Start: 09-18-2025 ambulatory Jayro Beth Facility: [facility] Start: 09-14-2024 End: 09-14-[address] Jayro Campos DO Work Phone: [facility] Work Phone: Start: 09-14-2024 End: 09-14-[address] Jayro Campos DO -[facility] Start: 09-14-2024 End: 09-14-2024 ambulatory Jayro Campos Facility:[facility] Start: 08-21-2024 ambulatory [facility] Facility: [facility] Start: 08-21-2023 End: 08-21-[address] [facility] Work Phone: Start: 08-21-2023 End: 08-21-2023 Patient encounter procedure [facility] Start: 08-20-2022 End: 08-20-[address] Carmine Jimenez Work Phone: [facility] Work Phone: Start: 08-20-2022 End: 08-20-[address] Carmine Jimenez Work Phone: [facility] Start: 05-28-2022 Non-patient / Non-visit Dr. Braxton Jimenez Work Phone: [facility] Start: 05-28-2022 End: 05-28-2022 Emergency department patient visit Dr. Carmine Jimenez Work Phone: [facility] Start: 05-27-2022 End: 05-27-[address] Carmine Jimenez Work Phone: [facility] Procedures Date Procedure Procedure Detail Performing Clinician Start: 05-28-2022 Plain chest X-ray Dr. Christel Jimenez Work Phone: Bacteria identified in Blood by Culture Dr. Carmine Jimenez Work Phone: Respiratory Panel (PCR) Dr. Carmine Jimenez Work Phone: Plan of Treatment Date Care Activity Detail Author Start: 05-28-2022 Patient discharge [facility] Start: 05-28-2022 [facility] Patient Education ED Pneumonia (Adult) [facility] Work Phone: Patient referral [facility] Work Phone: Immunizations Immunization Date Immunization Notes Care Provider Fa cilibo 10-11-2020 Covid (Moderna) Dr. Carmine weaver Work Phone: [facility] 09-13-2020 Covid (Moderna) Dr. Carmine weaver Work Phone: [facility] Payers Date Payer Category Payer Self-pay [id number] 2015 Unknown [id number] 2015 Medicare [id number] Unknown [id number] Unknown [id number] Unknown [id number] Unknown [id number] Social History Date Type Detail Facility [facility] Start: 1950 Sex Assigned At Male [facility] Start: 05-28-2022 [facility] Start: 09-26-2024 Sex Male (finding) [facility] Evaluation note Note Date & Type Note Facility Evaluation note Diagnosis Onset Date Acute upper respiratory infection acute [facility] Work Phone: Evaluation note Note Date & Type Note Facility Evaluation note No assessment information availa ble [facility] Work Phone: Reason for referral (narrative) Note Date & Type Note Facility Reason for referral (narrative) No reason for referral information available [facility] Work Phone: Chief Complaint and Reason for Visit Chief Complaint COVID TEST SOB Shortness of breath Reason for Visit Acute upper respirat ory infection Advance Directives No Advanced Directives Records Found Advance Directive Response Recorded Date/ Time Name of Medical Power of Superintendent Division ? May 28, 2022 9:58am Advance Directives No December 13 1:11pm Living Will Yes May 28 9:58am Power of Superintendent Division Yes May 28, 2022 9:58am Advance Directive Response Recorded Date/ Time Advance Directives No December 13 6 1:11pm Living Will Yes May 28 9:58am Power of Superintendent Division Yes May 28, 2022 9:58am Advance Directive Response Recorded Date/ Time Advance Directives No December 13 2:11pm Summary Purpose Family History No Family History Records Found Additional Source Comments Care Teams (unrecognized sec tion and content) Team Status: Active Member Role Status Dates Dr. Carmine Jimenez MD Family Provider Active Dr. Jayro Campos DO Primary Care Provider Active Team Status: Inactive Member Role Status Dates Dr. Carmine Jimenez MD Primary Care Provider, Referring Provider Active Som HERMAN, [place] Attending Provider Active Team Status: Active Member Role Status Dates Dr. Carmine Jimenez MD Primary Care Provider Active Dr. Jono Fitzgerald MD Referring Provider, Emergency Pr ovider Active Dr. Kevin Contreras DO Attending Provider Active Team Status: Inactive Member Role Status Dates Dr. Carmine Jimeenz MD Primary Care Provider Active Dr. Jono Fitzgerald MD Attending Provider, Emergency Pr ovider Active Team Status: Inactive Member Role Status Dates Dr. Jayro Campos DO Primary Care Provider, Attendin g Provider Active Team Status: Inactive Member Role Status Dates Dr. Jayro Campos DO Primary Care Prov ider, Attending Provider, Referring Provider Active Team Status: Inactive Member Role Status Dates Dr. Jayro Campos DO Primary Care Provider Active Start: September 14, 2024 End: September 14, 2024 Dr. Jayro Campos DO Attending Provider Active Start: September 14, 2024 End: September 14, 2024 Goals (unrecognized section and content) Goals may be documented in a n alternate sectionGoals may be documented in an alternate sectionGoals may be documented in an alternate section (unrecognized sect ion and content) No Status Records Found INFORMATION SOURCE (unrecogn ized section and content) DATE CREATED AUTHOR 03/26/2025 [facility] FOR RECORDS PERTAINING TO PATIENTS WHO ARE OR HAVE BEEN ENROLLED IN A CHEMICAL DEPENDENCY/SUBSTANCEABUSE PROGRAM, SOME INFORMATION MAY BE OMITTED. This clinical summary was aggregated from multiple sources. Caution should be exercised in using it in the provision of clinical care. This summary normalizes information from multiple sources, and as a consequence, information in this document may materially change the coding, format and clinical context of patient data. In addition, data may be omitted in some cases. CLINICAL DECISIONS SHOULD BE BASED ON THE PRIMARY CLINICAL RECORDS. [facility]. provides no warranty or guarantee of the accuracy or completeness of information in this document.
[2025-06-27 15:47] LABS: PSA,Total - Annual Screen 2.36 ng/mL (0.02-4.00)
== END | disposition home or self-care (01) ==
LOC: MTLAB 13:18
PROVIDERS: PCP Family Medicine; Referring Provider Family Medicine; Visit Provider Family Medicine
DX: Z12.5 Encounter for screening for malignant neoplasm of prostate (principal)
CPT/HCPCS: 36415; 84153; G0103